=== PATIENT | female | born 1950 | race Hispanic/Latino ===

== ENCOUNTER 2017-11-04 21:55 | Emergency (ER) | payer MEDICARE ==
[~2017-11-04] VITALS: Ht 162.6 cm; Wt 135.6 kg
[~2017-11-04 21:55] MED LIST: ADVAIR 500/501 EA INH; ALBUTEROL0.63 MG/3; AMLODIPINE BESY10 MG PO; CALCIUM600 MG PO; CENTRUM SILVER1 EAC4 PO; CITALOPRAM HBR40 MG PO; FEXOFENADINE H180 MG PO; FLAXSEED1000 MG PO; FLUOCINONIDE15 GM TOP; FUROSEMIDE40 MG PO; GABAPENTIN800 MG PO; GLYBURIDE5 MG PO; INVOKANA PO; KLOR-CON 88 MEQ PO; METFORMIN HCL850 MG PO; PANTOPRAZOLE SO40 MG PO; PLAVIX75 MG PO; PROAIR HFA INH8.5 GM; SIMVASTATIN20 MG PO; SOTALOL80 MG PO; TEMAZEPAM15 MG PO; THEOPHYLLINE600 MG PO; TRAZODONE HCL100 MG PO; TYLENOL EXTRA500 MG PO; ULTRAM50 MG PO; VITAMIN D31000 UNIT PO; VITAMIN E100 UNI1 PO; WELLBUTRIN SR150 MG PO; [UNRECOGNIZED DRUG - OTHER]; [UNRECOGNIZED DRUG - OTHER] PO
--- NOTE | 2017-11-05 00:16 | Diagnostic Imaging Report ---
RIBS UNILAT W/CXR Comparison: None Clinical history: Right-sided pain Findings: Heart/mediastinum: Normal for technique. Atherosclerotic aortic calcifications. Lungs/pleural spaces: Right upper lobe calcified granuloma. Mild left basilar linear atelectasis/scarring. No effusion or pneumothorax. Bones/soft tissues: No acute displaced right rib fracture. Cholecystectomy clips. Impression: No acute abnormality Signed by: Dr Kiana Farah MD on 11/05/2017 12:13 AM
--- NOTE | 2017-11-05 00:18 | Diagnostic Imaging Report ---
History:Status post fall. Comparison studies: None Technique: Axial images were obtained through the maxillofacial region. Coronal and sagittal images reconstructed from the axial data. Intravenous contrast: None Findings: Soft tissues: No abnormalities. Bones: Age indeterminate mildly displaced fracture of right nasal bone without overlying soft tissue edema. Orbits: Globes: Intact Extra or intraconal abnormalities: None. Paranasal sinuses: Clear Incidental finding: Pneumatized bilateral middle turbinates. IMPRESSION: Age indeterminate mildly displaced fracture of right nasal bone. Signed by: Dr. Elina Martinez M.D. on 11/05/2017 12:14 AM
--- NOTE | 2017-11-05 00:22 | Diagnostic Imaging Report ---
EXAMINATION: Head CT without contrast. HISTORY:Status post fall. COMPARISON:None. TECHNIQUE: Multidetector axial images were obtained from the foramen magnum to the vertex without contrast. The images were reconstructed using brain and bone algorithms. Thin section brain images were reformatted into coronal and sagittal planes. Intravenous contrast: None IMAGE QUALITY: Acceptable. FINDINGS: Skull/scalp: No abnormality. Parenchyma: No abnormal density. No acute hemorrhage, mass or acute major vascular territorial infarct. Arteries: Mild atherosclerotic calcification in bilateral carotid siphon. Dural sinuses: No abnormal density suggestive of thrombosis. Ventricles: No hydrocephalus or displacement. Extra-axial spaces: No abnormal density. Brain volume: Normal for age. Craniocervical junction: No mass, Chiari malformation, or basilar invagination. Sella: No mass. Paranasal/mastoid sinuses: Imaged portions unremarkable. IMPRESSION: No intracranial abnormality. Signed by: Dr. Elina Martinez M.D. on 11/05/2017 12:19 AM
--- NOTE | 2017-11-05 00:27 | Diagnostic Imaging Report ---
History: Status post fall. Comparison studies: None Technique: Axial images were obtained through the cervical region.. Coronal and sagittal images reconstructed from the axial data.. Intravenous contrast: None Findings: Fractures: None. Soft tissue injuries: None. Atlantoaxial articulation: Intact. Alignment: Loss of normal cervical lordosis is either positional or due to muscle spasm.. No scoliosis. Cervicomedullary junction: No abnormalities. The foramen magnum is patent. Soft tissues: Atherosclerotic calcification in the carotid bulb and retropharyngeal course of the carotid arteries. Vertebrae: No fractures, infection or neoplasm. Degenerative changes: C4-C5: Mild left foraminal stenosis due to facet and uncovertebral arthrosis. C5-C6: Posterior disc osteophyte complex without canal stenosis.. IMPRESSION: 1. No acute cervical spine fracture or dislocation. Loss of normal cervical lordosis is either positional or due to muscle spasm. 2. Ligament, spinal cord and or vascular abnormalities cannot be excluded on the basis of this examination. Signed by: Dr. Elina Martinez M.D. on 11/05/2017 12:24 AM
[2017-11-05 00:59] VITALS: BP 129/64
[2017-11-05] MEDS ORDERED: ULTRAM50 MG PO (01:00)
== END 2017-11-05 01:26 | disposition home or self-care (01) ==
LOC: ER 21:55
DX: S02.2XXA Fracture of nasal bones, initial encounter for closed fracture (principal); S00.83XA Contusion of other part of head, initial encounter; S00.11XA Contusion of right eyelid and periocular area, initial encounter; S16.1XXA Strain of muscle, fascia and tendon at neck level, initial encounter; W01.0XXA Fall on same level from slipping, tripping and stumbling without subsequent striking against object, initial encounter; Y93.01 Activity, walking, marching and hiking; Y92.008 Other place in unspecified non-institutional (private) residence as the place of occurrence of the external cause; I10 Essential (primary) hypertension; E11.9 Type 2 diabetes mellitus without complications; I50.9 Heart failure, unspecified; E78.5 Hyperlipidemia, unspecified; K21.9 Gastro-esophageal reflux disease without esophagitis; F41.9 Anxiety disorder, unspecified; F32.9 Major depressive disorder, single episode, unspecified
CPT/HCPCS: 70450; 70486; 71101; 72125; 99283

== ENCOUNTER 2017-11-07 18:01 | Emergency (ER) | payer MEDICARE ==
[~2017-11-07] VITALS: Ht 162.6 cm; Wt 135.6 kg
[2017-11-07] MEDS ORDERED: CLINDAMYCIN PHOS 900MG/ D5W 50 50 ML IV STA (20:16)
[2017-11-07 20:48] LABS: BASOPHILS % 0.3 % (0.0-1.0); EOSINOPHILS # (AUTO) 0.1 (0.0-0.4); EOSINOPHILS % 1.4 % (0.0-6.0); HEMOGLOBIN 14.1 g/dL (12.0-16.0); LYMPHOCYTES # (AUTO) 2.3 (1.0-3.2); LYMPHOCYTES % 29.8 % (18.0-39.1); MEAN CORPUSCULAR HEMOGLOBIN 30.1 pg (28-32); MEAN CORPUSCULAR VOLUME 93.8 fL (81-99); MONOCYTES # (AUTO) 0.5 (0.2-0.8); MONOCYTES % 6.5 % (4.4-11.3); NEUTROPHILS # (AUTO) 4.8 (2.1-6.9); NEUTROPHILS % 61.7 % (38.7-80.0); PLATELET COUNT 209 x10e3/uL (140-360); RED BLOOD COUNT 4.69 x10e6/uL (3.6-5.1); RED CELL DISTRIBUTION WIDTH 12.5 % (11.7-14.4)
[2017-11-07 20:54] LABS: INR 0.87; PROTHROMBIN TIME 12.3 seconds (11.9-14.5)
[2017-11-07 20:55] LABS: PARTIAL THROMBOPLASTIN TIME 33.6 seconds (23.8-35.5)
[2017-11-07 21:02] LABS: ALBUMIN 4.1 g/dL (3.5-5.0); ANION GAP 12.6 mmol/L (8-16); CALCIUM 9.3 mg/dL (8.4-10.2); CREATININE, SERUM 0.98 mg/dL (0.57-1.11); MAGNESIUM 2.1 MG/DL (1.3-2.1); POTASSIUM 3.6 mmol/L (3.5-5.1)
[2017-11-07 21:09] LABS: B-TYPE NATRIURETIC PEPTIDE2 35.3 pg/mL (0-100)
--- NOTE | 2017-11-07 21:11 | Diagnostic Imaging Report ---
LOWER LEG LEFT Comparison: None Clinical history: History of CHF, lower extremity swelling Findings: No fracture or dislocation. Mild diffuse soft tissues swelling. Impression: No acute bony abnormality Signed by: Dr Kiana Farah MD on 11/07/2017 9:07 PM
--- NOTE | 2017-11-07 21:12 | Diagnostic Imaging Report ---
CHEST 2 VIEWS, Technique: CHEST 2 VIEWS Comparison: 11/04/2017 Clinical history: CHF, lower terminates swelling DISCUSSION: Heart/mediastinum: Stable, borderline heart size. Aortic calcifications. Lungs: Mild bibasilar vascular crowding/atelectasis. No edema or consolidation. Calcified right lung granuloma. Pleural spaces: No pleural effusion or pneumothorax. IMPRESSION: No acute abnormality Signed by: Dr Kiana Farah MD on 11/07/2017 9:09 PM
[2017-11-07 21:23] LABS: CREATINE KINASE MB 2.1 ng/mL (0.00-5.00); THYROID STIMULATING HORMONE 0.98 uIU/mL (0.350-4.940); TROPONIN I 0.004 ng/mL (0-0.300)
[2017-11-07 22:27] VITALS: BP 149/86
== END 2017-11-07 22:37 | disposition home or self-care (01) ==
LOC: ER 18:01
DX: M79.662 Pain in left lower leg (principal); L03.116 Cellulitis of left lower limb; W01.0XXD Fall on same level from slipping, tripping and stumbling without subsequent striking against object, subsequent encounter
CPT/HCPCS: 36415; 71020; 80053; 82550; 82553; 83605; 83735; 83880; 84443; 84484; 85025; 85610; 85730; 87040; 93971; 99283

== ENCOUNTER 2018-03-05 10:14 | Outpatient (RCR) | payer MEDICARE | END 2018-03-12 | LOC: WCC 10:14 | PROVIDERS: ATTEND Family Medicine Adult Medicine | DX: E11.59 Type 2 diabetes mellitus with other circulatory complications (principal); R60.0 Localized edema; I87.2 Venous insufficiency (chronic) (peripheral); E78.00 Pure hypercholesterolemia, unspecified; F32.9 Major depressive disorder, single episode, unspecified; G90.09 Other idiopathic peripheral autonomic neuropathy; I50.9 Heart failure, unspecified; J44.9 Chronic obstructive pulmonary disease, unspecified; J45.909 Unspecified asthma, uncomplicated; K21.9 Gastro-esophageal reflux disease without esophagitis ==

== ENCOUNTER 2018-06-17 12:38 | Inpatient (IN) | payer MEDICARE ==
[~2018-06-17] VITALS: Ht 167.6 cm; Wt 130.8 kg
[2018-06-17] MEDS ORDERED: ALBUTEROL SULF 0.083% NEB SOLN 3 ML NEB NEB STA ×2 (12:44→12:49)
[2018-06-17 12:58] LABS: BASOPHILS % 0.3 % (0.0-1.0); EOSINOPHILS # (AUTO) 0.1 (0.0-0.4); EOSINOPHILS % 1.3 % (0.0-6.0); HEMATOCRIT 44.2 % (34.2-44.1); HEMOGLOBIN 14.3 g/dL (12.0-16.0); LYMPHOCYTES # (AUTO) 1.8 (1.0-3.2); LYMPHOCYTES % 25.8 % (18.0-39.1); MEAN CORPUSCULAR HEMOGLOBIN 29.5 pg (28-32); MEAN CORPUSCULAR HGB CONC 32.4 g/dL (31-35); MEAN CORPUSCULAR VOLUME 91.3 fL (81-99); MONOCYTES # (AUTO) 0.4 (0.2-0.8); MONOCYTES % 5.8 % (4.4-11.3); NEUTROPHILS # (AUTO) 4.7 (2.1-6.9); NEUTROPHILS % 66.5 % (38.7-80.0); PLATELET COUNT 220 x10e3/uL (140-360); RED BLOOD COUNT 4.84 x10e6/uL (3.6-5.1); RED CELL DISTRIBUTION WIDTH 13.1 % (11.7-14.4)
[2018-06-17] MEDS ORDERED: IPRATROPIUM BROMIDE 0.02% 2.5 ML NEB NEB ONE (13:00)
[2018-06-17] MEDS ORDERED: AZITHROMYCIN 500MG/NS 250 ML 250 ML IV STA (13:01)
[2018-06-17 13:13] LABS: ALBUMIN 3.5 g/dL (3.5-5.0); ALBUMIN/GLOBULIN RATIO 0.9 (0.8-2.0); CALCIUM 8.9 mg/dL (8.4-10.2); CREATININE, SERUM 1.1 mg/dL (0.57-1.11)
[2018-06-17] MEDS ORDERED: MAGNESIUM SULFATE 2GM/50ML 50 ML IV ONE (13:15)
[2018-06-17] MEDS ORDERED: METHYLPREDNISOLONE SOD SUCC 125 MG/2ML VIAL IV ONE (13:15)
[2018-06-17 14:09] LABS: ABG HCO3 23 mmol/L (23-28); ABG PCO2 35 mmHg (41-51); ABG PH 7.42 (7.31-7.41); ABG PO2 183 mmHg (80-105)
--- NOTE | 2018-06-17 14:15 | Diagnostic Imaging Report ---
EXAMINATION: Single frontal view of the chest COMPARISON: 11/07/2017 CLINICAL HISTORY: Shortness of breath DISCUSSION: The lungs are well-inflated. Calcified granuloma in the right upper lobe. No focal airspace consolidation, pleural effusion, or pneumothorax. Atherosclerotic calcification of the thoracic aorta. Normal heart size for portable, AP technique. No overt pulmonary edema. No acute osseous abnormalities. IMPRESSION: No acute cardiopulmonary abnormality. Signed by: Dr. Oscar Canseco M.D. on 06/17/2018 2:12 PM
[2018-06-17] MEDS ORDERED: ASPIRIN 81 MG CHEW TAB PO ONE (14:45)
[2018-06-17] MEDS: AZITHROMYCIN 500MG/NS 250 ML 250 ML IV SCH (15:05)
[2018-06-17 15:32] LABS: CREATINE KINASE MB 2.4 ng/mL (0-5.0)
[2018-06-17] MEDS ORDERED: NITROGLYCERIN0.4 MG SL (15:32)
[2018-06-17] MEDS ORDERED: CLOPIDOGREL75 MG PO (15:32)
[2018-06-17] MEDS ORDERED: METFORMIN HCL500 MG PO (15:32)
[2018-06-17] MEDS ORDERED: tresiba SC (15:32)
[2018-06-17 16:19] VITALS: BP 133/61
[2018-06-17 16:21] VITALS: BP 133/61
[2018-06-17 16:32] VITALS: BP 133/61
[2018-06-17] MEDS ORDERED: NON-FORMULARY MEDICATION (Gabapentin 800 MG) PO PRN (17:45)
[2018-06-17] MEDS ORDERED: TRAMADOL HCL 50 MG TAB PO PRN (17:45)
[2018-06-17] MEDS ORDERED: NITROGLYCERIN 0.4 MG SUBL SL SCH (17:45)
[2018-06-17] MEDS ORDERED: DEXTROSE 50% SYRINGE 50 ML IV PRN (17:45)
--- NOTE | 2018-06-17 18:15 | Consultation ---
DATE OF CONSULTATION: June 17, 2018 PULMONARY CONSULTATION A patient of Dr. Garza, Dr. Wheeler, Dr. Palacio. A charming but unfortunate 68-year-old woman admitted with shortness of breath after upper respiratory tract infection over 1 week, fever, chills, cough productive of green sputum, history of cardiac arrhythmias, history of diabetes, hypertension, COPD, sleep apnea. Unable to obtain CPAP. Chronic depression, gastroesophageal reflux. ALLERGIES: INCLUDE ASPIRIN, CODEINE, DILAUDID AND PENICILLIN. HOME MEDICATIONS: Have included Advair, albuterol, amlodipine, BuSpar, , Celexa, Plavix, Flomax, Neurontin, glyburide, metformin, montelukast, Zocor, sotalol, theophylline. Smoked a pack a day, has quit 1 month ago. Disabled. PHYSICAL EXAMINATION GENERAL: She is a well-developed female in no acute distress but anxious on supplemental oxygen. VITAL SIGNS: Temperature 98.6, pulse 58, respiration 20, blood pressure 132/80. HEAD: Normocephalic, atraumatic. EYES: Extraocular movements intact. LUNGS: Wheezing all lung serrano. HEART: Regular rhythm. ABDOMEN: Nontender. EXTREMITIES: Tender, which is from neuropathy. IMPRESSION: One of 1. Acute exacerbation of chronic obstructive pulmonary disease. 2. Possible component of asthma. 3. Obstructive sleep apnea. 4. Diabetes. PLAN: Moderate-dose steroids, empiric antibiotic therapy, nasal CPAP, supplemental oxygen. Thank you for this kind referral. Job#: [id number] EV
[2018-06-17] MEDS ORDERED: METHYLPREDNISOLONE SOD SUCC 40 MG/ML VIAL IV SCH (19:00)
[2018-06-17] MEDS ORDERED: IPRATROPIUM BROMIDE INHALER 12.9 GM INH INH SCH (19:00)
[2018-06-17] MEDS: ALBUTEROL/IPRATROPIUM 3 ML NEB NEB SCH ×2 (19:00→23:00)
[2018-06-17] MEDS: INSULIN LISPRO 100 UNIT/1 ML 3ML VIAL SQ SCH (19:54)
[2018-06-17 20:00] VITALS: BP 133/61
[2018-06-17 20:18] LABS: CREATINE KINASE MB 1.8 ng/mL (0-5.0)
[2018-06-17 20:47] VITALS: BP 116/54
[2018-06-17] MEDS ORDERED: NON-FORMULARY MEDICATION (Trazodone Hcl 100 MG) PO SCH (21:00)
[2018-06-17] MEDS: SIMVASTATIN 20 MG TAB PO SCH (22:01)
[2018-06-17] MEDS: TRAZODONE HCL 50 MG TAB PO SCH (22:01)
[2018-06-17] MEDS: HEPARIN SOD (PORCINE) 5,000 UNIT/ML VIAL SC SCH (22:02)
[2018-06-17] MEDS: GABAPENTIN 400 MG CAP PO PRN (22:14)
[2018-06-17] MEDS: TRAMADOL HCL 50 MG TAB PO PRN (22:15)
[2018-06-18] VITALS (7 sets, daily range): BP systolic 110–144; BP diastolic 53–63
[2018-06-18] MEDS: ALBUTEROL/IPRATROPIUM 3 ML NEB NEB SCH ×6 (03:00→22:30)
[2018-06-18 05:46] LABS: BASOPHILS % 0.2 % (0.0-1.0); HEMATOCRIT 40.9 % (34.2-44.1); HEMOGLOBIN 13.2 g/dL (12.0-16.0); LYMPHOCYTES # (AUTO) 1.3 (1.0-3.2); LYMPHOCYTES % 20.4 % (18.0-39.1); MEAN CORPUSCULAR HEMOGLOBIN 29.2 pg (28-32); MEAN CORPUSCULAR HGB CONC 32.3 g/dL (31-35); MEAN CORPUSCULAR VOLUME 90.5 fL (81-99); MONOCYTES # (AUTO) 0.3 (0.2-0.8); MONOCYTES % 5.2 % (4.4-11.3); NEUTROPHILS # (AUTO) 4.8 (2.1-6.9); NEUTROPHILS % 73.7 % (38.7-80.0); PLATELET COUNT 212 x10e3/uL (140-360); RED BLOOD COUNT 4.52 x10e6/uL (3.6-5.1)
--- NOTE | 2018-06-18 06:43 | Diagnostic Imaging Report ---
CHEST 2 VIEWS, Technique: CHEST 2 VIEWS Comparison: Previous day Clinical history: Shortness of breath DISCUSSION: PA view is limited by overpenetration. Stable appearance of the heart, mediastinum, lungs and pleural spaces. IMPRESSION: No acute abnormality Signed by: Dr Kiana Farah MD on 06/18/2018 6:40 AM
[2018-06-18 07:00] LABS: ANION GAP 14.2 mmol/L (8-16); CALCIUM 9.3 mg/dL (8.4-10.2); CREATININE, SERUM 0.94 mg/dL (0.57-1.11); POTASSIUM 4.2 mmol/L (3.5-5.1)
[2018-06-18] MEDS: INSULIN LISPRO 100 UNIT/1 ML 3ML VIAL SQ SCH ×4 (07:47→21:19)
[2018-06-18] MEDS: CITALOPRAM HYDROBROMIDE 20 MG TAB PO SCH (08:15)
[2018-06-18] MEDS: CLOPIDOGREL BISULFATE 75 MG TAB PO SCH (08:15)
[2018-06-18] MEDS: AMLODIPINE BESYLATE 10 MG TAB PO SCH (08:16)
[2018-06-18] MEDS: GLYBURIDE 5 MG TAB PO SCH (08:16)
[2018-06-18] MEDS: POTASSIUM CHLORIDE 10 MEQ TABCR PO SCH (08:16)
[2018-06-18] MEDS: PANTOPRAZOLE SOD 40 MG TABEC PO SCH (08:17)
[2018-06-18] MEDS: SOTALOL HCL 80 MG TAB PO SCH ×2 (08:17→17:00)
[2018-06-18] MEDS: BUPROPION HCL SR 150 MG TAB PO SCH (08:17)
[2018-06-18] MEDS: HEPARIN SOD (PORCINE) 5,000 UNIT/ML VIAL SC SCH ×2 (08:18→21:19)
[2018-06-18] MEDS: FUROSEMIDE 40 MG TAB PO SCH (08:30)
[2018-06-18] MEDS: SALMETEROL/FLUTICASONE 500/50 INH SCH ×2 (09:00→17:00)
[2018-06-18] MEDS ORDERED: POTASSIUM CHLORIDE 8 MEQ PO SCH (09:00)
[2018-06-18] MEDS ORDERED: NON-FORMULARY MEDICATION (Citalopram Hydrobromide (Citalopram Hbr) 40 MG) PO SCH (09:00)
[2018-06-18] MEDS ORDERED: METHYLPREDNISOLONE SOD SUCC 40 MG/ML VIAL IV SCH (09:00)
[2018-06-18] MEDS ORDERED: CEFTRIAXONE SOD 1 GM/NS 50 ML 50 ML IV SCH (09:45)
[2018-06-18] MEDS ORDERED: CEFTRIAXONE SOD 1 GM VIAL IV SCH (10:00)
--- NOTE | 2018-06-18 10:12 | History and Physical ---
PRIMARY CARE PHYSICIAN: Dr. Vicenta Todd NURSE CHARGE RN: Dr. Oscar Burns CHIEF COMPLAINT: Hypoxia, respiratory difficulty with dyspnea. HISTORY: Patient is a 68-year-old female came into the hospital with increasing shortness of breath, cough, fever, and difficulty breathing. The patient has acute respiratory insufficiency. The patient required BiPAP. She is doing better today. She is still having wheezing and shortness of breath especially with any exertion. The patient at baseline is a smoker. She does have COPD. PAST MEDICAL HISTORY: Hypertension, diabetes type 2, COPD with acute exacerbation, smoker, coronary artery disease with cardiac arrhythmia, cataract, and chronic headaches. PAST SURGICAL HISTORY: Hysterectomy, cholecystectomy, and cataract surgery. SOCIAL HISTORY: Patient does smoke. She denies alcohol use. There is no recreational drug use. ALLERGIES: TO IBUPROFEN, ASPIRIN, CODEINE, PEANUTS, PENICILLIN. HOME MEDICATIONS: List is extensively reviewed. REVIEW OF SYSTEMS: Coughing, shortness of breath, low-grade fever, difficulty breathing. PHYSICAL EXAMINATION: VITAL SIGNS: Temperature is 99, blood pressure 139/63, pulse rate 64, respirations 22. GENERAL: The patient is not in acute distress. She is awake. HEENT: Normocephalic, atraumatic. Sclerae anicteric. NECK: Supple grossly. PULMONARY: Diminished breath sounds bilaterally with coarseness and rhonchi. CARDIOVASCULAR: Regular rate and rhythm. ABDOMEN: Soft, obese. EXTREMITIES: No cyanosis or edema. NEURO: No gross focal deficit. LABORATORY: Sodium is 140, potassium 4.2, chloride 106, bicarb 24, BUN 21, creatinine 0.9, glucose 152. WBC 6.5, hemoglobin 13, hematocrit 41, platelets is 218,000. CT of the chest is still pending. IMPRESSION: 1. Acute exacerbation of chronic obstructive pulmonary disease. 2. Acute respiratory insufficiency. 3. Morbid obesity. 4. Multiple baseline problems. PLAN: Continue with nebulizer treatment. IV antibiotics. DVT prophylaxis. Resume home medication, insulin sliding scale coverage, and continue with her home medication with adjustment. Nebulizer treatment. Consultation with Dr. Oscar Burns. CT chest still pending. Job#: [id number]
[2018-06-18] MEDS: ONDANSETRON HCL INJ 2 MG/ML VIAL IV PRN (11:48)
[2018-06-18] MEDS: AZITHROMYCIN 500MG/NS 250 ML 250 ML IV SCH (15:53)
--- NOTE | 2018-06-18 16:46 | Diagnostic Imaging Report ---
TECHNIQUE: CT of the chest without intravenous contrast. COMPARISON: Chest radiograph 06/18/18. FINDINGS: LINES AND TUBES: None LUNGS AND AIRWAYS: The central airways are patent. There is a 6 mm calcified granuloma in the right upper lobe. There is a 3 mm solid pulmonary nodule in the right lower lobe on series 2, image 55. Scattered dependent atelectasis. PLEURA: The pleural spaces are clear. HEART AND MEDIASTINUM: The thyroid gland is normal. No significant mediastinal, hilar or axillary lymphadenopathy is seen. No cardiomegaly or pericardial effusion. Atherosclerotic calcifications of the abdominal aorta, great vessels, and coronary vessels. Mitral annular calcifications. The main pulmonary artery is mildly dilated measuring up to 3.1 cm. UPPER ABDOMEN: Limited noncontrast views of the upper abdomen demonstrate no abnormality in the liver, spleen, or adrenal glands. Status post cholecystectomy. BONES AND SOFT TISSUES: No acute bony findings. There is a T4 vertebral body hemangioma. Mild degenerative disc changes in the thoracic spine. IMPRESSION: No acute findings in the chest on this non-contrast study. Coronary and aortic atherosclerosis. Mildly dilated main pulmonary artery, suggestive of pulmonary arterial hypertension. A 3 mm solid pulmonary nodule in the right upper lobe is likely benign. In a low risk patient, no follow-up is required. If the patient has a risk factory for malignancy, then a chest CT may be considered in 12 months. Signed by: Dr. Mikhail Zambrano MD on 06/18/2018 4:42 PM
[2018-06-18] MEDS: METHYLPREDNISOLONE SOD SUCC 40 MG/ML VIAL IV SCH (18:11)
[2018-06-18] MEDS: ENOXAPARIN SOD INJ 40 MG/0.4 ML SYR SC SCH (18:12)
[2018-06-18] MEDS: TRAZODONE HCL 50 MG TAB PO SCH (21:19)
[2018-06-18] MEDS: TRAMADOL HCL 50 MG TAB PO PRN (21:19)
[2018-06-18] MEDS: GABAPENTIN 400 MG CAP PO PRN (21:19)
[2018-06-18] MEDS: SIMVASTATIN 20 MG TAB PO SCH (21:19)
[2018-06-19] VITALS (8 sets, daily range): BP systolic 114–136; BP diastolic 58–87
[2018-06-19] MEDS: ALBUTEROL/IPRATROPIUM 3 ML NEB NEB SCH ×6 (03:00→22:15)
[2018-06-19] MEDS: INSULIN LISPRO 100 UNIT/1 ML 3ML VIAL SQ SCH ×4 (08:19→21:00)
[2018-06-19] MEDS: SALMETEROL/FLUTICASONE 500/50 INH SCH ×2 (08:48→16:50)
[2018-06-19] MEDS: METHYLPREDNISOLONE SOD SUCC 40 MG/ML VIAL IV SCH ×2 (08:54→16:50)
[2018-06-19] MEDS: CITALOPRAM HYDROBROMIDE 20 MG TAB PO SCH (08:54)
[2018-06-19] MEDS: GLYBURIDE 5 MG TAB PO SCH (08:54)
[2018-06-19] MEDS: CLOPIDOGREL BISULFATE 75 MG TAB PO SCH (08:55)
[2018-06-19] MEDS: PANTOPRAZOLE SOD 40 MG TABEC PO SCH (08:55)
[2018-06-19] MEDS: SOTALOL HCL 80 MG TAB PO SCH ×2 (08:55→16:50)
[2018-06-19] MEDS: BUPROPION HCL SR 150 MG TAB PO SCH (08:55)
[2018-06-19] MEDS: FUROSEMIDE 40 MG TAB PO SCH (08:55)
[2018-06-19] MEDS: AMLODIPINE BESYLATE 10 MG TAB PO SCH (08:55)
[2018-06-19] MEDS: POTASSIUM CHLORIDE 10 MEQ TABCR PO SCH (08:55)
[2018-06-19] MEDS: HEPARIN SOD (PORCINE) 5,000 UNIT/ML VIAL SC SCH ×2 (08:56→21:00)
[2018-06-19] MEDS ORDERED: CEFTRIAXONE SOD 1 GM/NS 50 ML 50 ML IV SCH (09:00)
[2018-06-19] MEDS: AZITHROMYCIN 500MG/NS 250 ML 250 ML IV SCH (16:47)
[2018-06-19] MEDS: ENOXAPARIN SOD INJ 40 MG/0.4 ML SYR SC SCH (16:50)
[2018-06-19] MEDS: SIMVASTATIN 20 MG TAB PO SCH (21:00)
[2018-06-19] MEDS: TRAZODONE HCL 50 MG TAB PO SCH (21:00)
[2018-06-20] VITALS (7 sets, daily range): BP systolic 106–165; BP diastolic 53–70
[2018-06-20] MEDS: ALBUTEROL/IPRATROPIUM 3 ML NEB NEB SCH ×6 (01:55→22:30)
[2018-06-20] MEDS: SALMETEROL/FLUTICASONE 500/50 INH SCH ×2 (07:20→19:10)
[2018-06-20] MEDS: INSULIN LISPRO 100 UNIT/1 ML 3ML VIAL SQ SCH ×4 (07:30→21:19)
[2018-06-20] MEDS: CITALOPRAM HYDROBROMIDE 20 MG TAB PO SCH (08:43)
[2018-06-20] MEDS: METHYLPREDNISOLONE SOD SUCC 40 MG/ML VIAL IV SCH ×2 (08:43→16:39)
[2018-06-20] MEDS: GLYBURIDE 5 MG TAB PO SCH (08:43)
[2018-06-20] MEDS: POTASSIUM CHLORIDE 10 MEQ TABCR PO SCH (08:43)
[2018-06-20] MEDS: FUROSEMIDE 40 MG TAB PO SCH (08:43)
[2018-06-20] MEDS: CLOPIDOGREL BISULFATE 75 MG TAB PO SCH (08:44)
[2018-06-20] MEDS: BUPROPION HCL SR 150 MG TAB PO SCH (08:44)
[2018-06-20] MEDS: AMLODIPINE BESYLATE 10 MG TAB PO SCH (08:44)
[2018-06-20] MEDS: SOTALOL HCL 80 MG TAB PO SCH ×2 (08:44→16:41)
[2018-06-20] MEDS: PANTOPRAZOLE SOD 40 MG TABEC PO SCH (08:44)
[2018-06-20] MEDS: HEPARIN SOD (PORCINE) 5,000 UNIT/ML VIAL SC SCH ×2 (09:07→21:20)
[2018-06-20] MEDS: CEFTRIAXONE SOD 1 GM VIAL IV SCH (09:09)
[2018-06-20] MEDS: ONDANSETRON HCL INJ 2 MG/ML VIAL IV PRN (09:46)
[2018-06-20] MEDS: AZITHROMYCIN 500MG/NS 250 ML 250 ML IV SCH (15:27)
[2018-06-20] MEDS: ENOXAPARIN SOD INJ 40 MG/0.4 ML SYR SC SCH (16:41)
[2018-06-20] MEDS: TRAZODONE HCL 50 MG TAB PO SCH (21:17)
[2018-06-20] MEDS: SIMVASTATIN 20 MG TAB PO SCH (21:17)
[2018-06-21] VITALS (8 sets, daily range): BP systolic 108–136; BP diastolic 58–62
[2018-06-21] MEDS: ALBUTEROL/IPRATROPIUM 3 ML NEB NEB SCH ×6 (01:40→23:00)
[2018-06-21] MEDS: INSULIN LISPRO 100 UNIT/1 ML 3ML VIAL SQ SCH ×4 (07:30→21:00)
[2018-06-21] MEDS: SALMETEROL/FLUTICASONE 500/50 INH SCH ×2 (07:46→19:15)
[2018-06-21] MEDS: CITALOPRAM HYDROBROMIDE 20 MG TAB PO SCH (08:45)
[2018-06-21] MEDS: GLYBURIDE 5 MG TAB PO SCH (08:45)
[2018-06-21] MEDS: CEFTRIAXONE SOD 1 GM VIAL IV SCH (08:45)
[2018-06-21] MEDS: METHYLPREDNISOLONE SOD SUCC 40 MG/ML VIAL IV SCH (08:45)
[2018-06-21] MEDS: AMLODIPINE BESYLATE 10 MG TAB PO SCH (08:46)
[2018-06-21] MEDS: CLOPIDOGREL BISULFATE 75 MG TAB PO SCH (08:46)
[2018-06-21] MEDS: BUPROPION HCL SR 150 MG TAB PO SCH (08:46)
[2018-06-21] MEDS: FUROSEMIDE 40 MG TAB PO SCH (08:46)
[2018-06-21] MEDS: POTASSIUM CHLORIDE 10 MEQ TABCR PO SCH (08:46)
[2018-06-21] MEDS: SOTALOL HCL 80 MG TAB PO SCH ×2 (08:46→17:02)
[2018-06-21] MEDS: PANTOPRAZOLE SOD 40 MG TABEC PO SCH (08:46)
[2018-06-21] MEDS: HEPARIN SOD (PORCINE) 5,000 UNIT/ML VIAL SC SCH ×2 (08:47→21:58)
[2018-06-21] MEDS ORDERED: INSULIN DETEMIR 100 UNIT/ML PEN SQ ONE (11:15)
[2018-06-21] MEDS: AZITHROMYCIN 500MG/NS 250 ML 250 ML IV SCH (14:41)
[2018-06-21] MEDS: ENOXAPARIN SOD INJ 40 MG/0.4 ML SYR SC SCH (17:02)
[2018-06-21] MEDS: SIMVASTATIN 20 MG TAB PO SCH (21:57)
[2018-06-21] MEDS: TRAZODONE HCL 50 MG TAB PO SCH (21:57)
[2018-06-22 00:22] VITALS: BP 115/57
[2018-06-22] MEDS: ALBUTEROL/IPRATROPIUM 3 ML NEB NEB SCH ×3 (03:00→11:00)
[2018-06-22 04:40] VITALS: BP 107/56
[2018-06-22 05:04] LABS: BASOPHILS % 0.3 % (0.0-1.0); EOSINOPHILS # (AUTO) 0.1 (0.0-0.4); EOSINOPHILS % 0.9 % (0.0-6.0); HEMATOCRIT 44.5 % (34.2-44.1); HEMOGLOBIN 14.4 g/dL (12.0-16.0); LYMPHOCYTES # (AUTO) 3.8 (1.0-3.2); LYMPHOCYTES % 39.8 % (18.0-39.1); MEAN CORPUSCULAR HEMOGLOBIN 29.7 pg (28-32); MEAN CORPUSCULAR HGB CONC 32.4 g/dL (31-35); MEAN CORPUSCULAR VOLUME 91.8 fL (81-99); MONOCYTES # (AUTO) 0.7 (0.2-0.8); MONOCYTES % 7.7 % (4.4-11.3); NEUTROPHILS # (AUTO) 4.8 (2.1-6.9); NEUTROPHILS % 50.7 % (38.7-80.0); PLATELET COUNT 201 x10e3/uL (140-360); RED BLOOD COUNT 4.85 x10e6/uL (3.6-5.1); RED CELL DISTRIBUTION WIDTH 12.9 % (11.7-14.4)
[2018-06-22 05:26] LABS: ANION GAP 12.6 mmol/L (8-16); CALCIUM 9.5 mg/dL (8.4-10.2); CREATININE, SERUM 1.22 mg/dL (0.57-1.11); POTASSIUM 4.6 mmol/L (3.5-5.1)
[2018-06-22] MEDS: INSULIN LISPRO 100 UNIT/1 ML 3ML VIAL SQ SCH ×2 (07:30→11:30)
[2018-06-22 07:35] VITALS: BP 107/56
[2018-06-22 08:00] VITALS: BP 110/53
[2018-06-22] MEDS: SALMETEROL/FLUTICASONE 500/50 INH SCH (08:09)
[2018-06-22] MEDS: CITALOPRAM HYDROBROMIDE 20 MG TAB PO SCH (08:45)
[2018-06-22] MEDS: SOTALOL HCL 80 MG TAB PO SCH (08:45)
[2018-06-22] MEDS: CEFTRIAXONE SOD 1 GM VIAL IV SCH (08:45)
[2018-06-22] MEDS: CLOPIDOGREL BISULFATE 75 MG TAB PO SCH (08:45)
[2018-06-22] MEDS: AMLODIPINE BESYLATE 10 MG TAB PO SCH (08:45)
[2018-06-22] MEDS: PANTOPRAZOLE SOD 40 MG TABEC PO SCH (08:45)
[2018-06-22] MEDS: BUPROPION HCL SR 150 MG TAB PO SCH (08:45)
[2018-06-22] MEDS: GLYBURIDE 5 MG TAB PO SCH (08:45)
[2018-06-22] MEDS: HEPARIN SOD (PORCINE) 5,000 UNIT/ML VIAL SC SCH (08:45)
[2018-06-22] MEDS: POTASSIUM CHLORIDE 10 MEQ TABCR PO SCH (08:45)
[2018-06-22] MEDS ORDERED: METHYLPREDNISOLONE SOD SUCC 40 MG/ML VIAL IV SCH (09:00)
[2018-06-22] MEDS: FUROSEMIDE 40 MG TAB PO SCH (10:37)
--- NOTE | 2018-06-22 11:43 | Discharge Summary ---
PRIMARY CARE PHYSICIAN: Vicenta Todd MD LAW REPORTER: Dr. Oscar Burns. FINAL DIAGNOSES 1. Status post acute respiratory failure with bilevel positive airway pressure treatment. 2. Acute exacerbation of chronic obstructive pulmonary disease with acute hypoxia. 3. Morbid obesity. 4. Multiple chronic baseline problems including chronic obstructive pulmonary disease, emphysema, obesity, obstructive sleep apnea, diabetes on insulin therapy, hypertension, extensive comorbidities. SUMMARY: This 68-year-old female came in with respiratory failure. The patient was in acute exacerbation of COPD. She was having wheezing and difficulty breathing. The patient had hypoxia. She was placed on BiPAP. The patient responded well. She subsequently was changed to CPAP for sleep. She does have obstructive sleep apnea, but she did not have her CPAP at home. 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 The patient was on IV Solu-Medrol, subsequently titrating Solu-Medrol down to now discontinued. She does have diabetes on insulin and also oral medications. The blood sugar was elevated due to steroids but much improved now since tapering the steroids. The patient is stable. She will go home today. Activity as tolerated. Resume home medication. Follow up with Dr. Burns this week and her PCP next week. The patient is stable for discharge home today. Job#: [id number]
[2018-06-22 12:00] VITALS: BP 124/62
== END 2018-06-22 13:19 | disposition home health service (06) | DRG 189 ==
LOC: ER 12:38 → ERHOLD 14:45 → IMCU 15:57 → OBSVTOIN 06-18 17:05 → MED/SURG3 06-19 17:24
PROVIDERS: ADMIT Internal Medicine; ATTEND Internal Medicine
DX: J96.01 Acute respiratory failure with hypoxia (principal); J44.1 Chronic obstructive pulmonary disease with (acute) exacerbation; Z68.42 Body mass index [BMI] 45.0-49.9, adult; E66.01 Morbid (severe) obesity due to excess calories; Z87.891 Personal history of nicotine dependence; I25.10 Atherosclerotic heart disease of native coronary artery without angina pectoris; G47.33 Obstructive sleep apnea (adult) (pediatric); Z99.81 Dependence on supplemental oxygen; E11.69 Type 2 diabetes mellitus with other specified complication; Z79.4 Long term (current) use of insulin; I10 Essential (primary) hypertension
CPT/HCPCS: 36415; 36600; 71045; 71046; 71250; 80048; 80053; 82550; 82553; 82805; 82948; 83605; 84484; 85025; 87040; 93005; 94640; 94660; 96372; 99284; G0378; J0456; J0696; J1644; J1650; J2405; J2920; J2930

== ENCOUNTER → 2018-07-17 | Outpatient (CLI) | payer MEDICARE, OTHER ==
[~2018-07-17] MED LIST changes: +CLOPIDOGREL75 MG PO; +METFORMIN HCL500 MG PO; +NITROGLYCERIN0.4 MG SL; +tresiba SC
--- NOTE | 2018-07-27 18:19 | Polysomnography ---
DATE OF STUDY: July 17, 2018 POLYSOMNOGRAM REPORT The patient with a history of daytime hypersomnolence. Previously diagnosed with obstructive sleep apnea. This represents a followup study and a split-night study was requested. the previous study was performed in 2010. . The study was performed on 07/17. The patient is 5 feet 5 inches. [place] sleepiness score was elevated at 14. Neck size was 15.75. Body mass index 48.3. She was monitored using standard EEG lead montage including electrooculogram, submental CMG anterior tibialis EMG, nasal thermistors ribcage and abdominal strain nathalie monitor, pulse oximeter. \ The study was abnormal. There were 5 obstructive and 1 central apnea, the longest in duration 16 seconds, 29 hypopneas, 8 respiratory event related arousals. The apnea hypopnea index was 11.3. The respiratory disturbance index 12.3. This with mild obstructive sleep apnea. All stages of sleep were recorded. Sleep efficiency was 88%. The patient slept on her left side which may have minimized the severity of her illness. Snoring was heard throughout the study. IMPRESSION: Mild obstructive sleep apnea. Therapeutic options include weight reduction, uvulopalatal pharyngoplasty, throat retaining devices and nasal CPAP. Patient should be warned not to drive when left untreated. During the second portion of the study she was fitted with a nasal CPAP mask. The patient did not meet criteria for a split-night study and a followup CPAP titration is recommended. Job#: [id number] SANDEEP
== END ==
LOC: SLEEP 19:15
PROVIDERS: ATTEND Internal Medicine Pulmonary Disease
DX: G47.33 Obstructive sleep apnea (adult) (pediatric) (principal)

== ENCOUNTER → 2018-09-07 | Outpatient (CLI) | payer MEDICARE, OTHER ==
--- NOTE | 2018-09-28 08:58 | Polysomnography ---
DATE OF STUDY: July 17, 2018 CPAP TITRATION The patient with previously diagnosed with obstructive sleep apnea. Patient has a history of daytime hypersomnolence, 290 pounds, 5 feet 5 inches, neck size 15.75 inches. She was studied using the standard EEG lead montage. In addition, electrooculogram, submentalis EMG, anterior tibialis EMG, nasal and oral thermistors, rib cage abdominal strain nathalie, monitor of pulse oximeter, potline monitor. She was fitted with a ResMed air-fit P10 medium size mask. She was titrated to BiPAP setting of 19/14. Heated humidifier was employed. A full face mask was used. The patient preferred nasal pillows. A ResMed air-fit F10 size small. Apneas and hypopneas were essentially eliminated. Final recommendation was a ResMed air-fit P10 nasal pillow, size medium. Saturation remained above 88%. All stages of sleep were recorded, including REM sleep. Patient slept on her right side for the entire study. Recommended the patient be given a trial of BiPAP. She was titrated from 4 to 12 and then to BiPAP of 19/17. Heated humidification is recommended to improve patient comfort and compliance. Certainly, weight reduction should be part of the patient's therapeutic program. She should be warned not to drive when left untreated. Job#: [id number] ANTWON
== END ==
LOC: SLEEP 20:11
PROVIDERS: ATTEND Internal Medicine Pulmonary Disease
DX: G47.33 Obstructive sleep apnea (adult) (pediatric) (principal)
CPT/HCPCS: 95811

== ENCOUNTER 2019-08-28 15:42 | Emergency (ER) | payer MEDICARE ==
[~2019-08-28] VITALS: Ht 167.6 cm; Wt 130.6 kg
--- OUTSIDE RECORDS SUMMARY | 2019-08-28 15:45 | XMS REPORT | Encounter Summary ---
Author Organization Unknown Address [address] [place] [address] Phone [phone] Care Team Providers Care Hand Etcher Helper Name Role Phone Dr. Vicenta Todd 3 [phone] Carole Palacio MD 82 [phone] Alex Diaz MD 111 [phone] Lucia Treadwell DO 113 [phone] Jo Ann Wheeler MD 114 [phone] Dax Oshea MD (Endocrinology) 119 [phone] Pita Mills MD 129 [phone] Reason for Visit AWV Annual Wellness Visit Female (VFP); UTI Instructions 1. Adult health examination 2. Advance directive discussed with patient advance care planning: care instructions 3. Depression screening 4. Alcohol consumption screening learning about alcohol misuse 5. Depression screening positive learning about depression learning about mood disorders 6. Acute urinary tract infection urinalysis, dipstick Cipro 500 mg tablet culture, urine Discussion Note: None recorded. Plan of Care Reminders Provider Appointments Est Patient 12/29/2018 9:30AM Vicenta Todd MD Lab Urinalysis, Dipstick 11/25/2018 [facility] ([facility] [place] Culture, Urine 11/25/2018 [facility] Laboratory Referral None recorded. Procedures None recorded. Surgeries None recorded. Imaging None recorded. Medications Name Start Date Advair Diskus 500 mcg-50 mcg/dose powder for inhalation INHALE 2 PUFF(S) EVERY DAY BY INHALATION ROUTE. albuterol sulfate 2.5 mg/3 mL (0.083 %) solution for nebulization INHALE 3 MILLILITERS (2.5 MG) BY NEBULIZATION ROUTE NEEDED EVERY 4-6 HRS alprazolam 0.25 mg tablet Take 1 tablet every day by oral route at bedtime for 1 day. amlodipine 10 mg tablet TAKE 1 TABLET BY MOUTH EVERY DAY BD Ultra-Fine Coby Pen Needle 32 gauge x 5/32" QD bupropion HCl XL 300 mg 24 hr tablet, extended release TAKE 1 TABLET(S) EVERY DAY BY ORAL ROUTE DIRECTED. Centrum 1 tab a day cholecalciferol (vitamin D3) 1,000 unit capsule ONCE DAILY OTC Cipro 500 mg tablet Take 1 tablet every 12 hours by oral route as directed for 10 days. citalopram 40 mg tablet TAKE 1 TABLET(S) EVERY DAY BY ORAL ROUTE. clobetasol 0.05 % topical cream APPLY A THIN LAYER TO THE AFFECTED AREA(S) BY TOPICAL ROUTE 2 TIMES PER DAY clopidogrel 75 mg tablet TAKE 1 TABLET(S) EVERY DAY BY ORAL ROUTE. clotrimazole-betamethasone 1 %-0.05 % topical cream APPLY TO THE AFFECTED AND SURROUNDING AREAS OF SKIN BY TOPICAL ROUTE 2 TIMES PER DAY IN THE MORNING AND EVENING FOR 2 WEEKS doxepin 5 % topical cream TID to left knee 04/08/2017 furosemide 40 mg tablet TAKE 1 TABLET BY MOUTH EVERY DAY gabapentin 800 mg tablet TAKE 1 TABLET BY MOUTH 3 TIMES A DAY glyburide 5 mg tablet Take 2 tablets twice a day by oral route. hydroxyzine HCl 10 mg tablet BID Invokana 100 mg tablet lidocaine 5 % topical ointment TID to left knee 04/08/2017 lisinopril 5 mg tablet QD meclizine 25 mg tablet Take 1 tablet 3 times a day by oral route as needed. metformin 500 mg tablet Take 1 tablet twice a day by oral route for 90 days. montelukast 10 mg tablet TAKE 1 TABLET BY MOUTH EVERY DAY nitroglycerin 0.[address] 1 TABLET BY SUBLINGUAL ROUTE EVERY DAY NEEDED OneTouch Delica Lancets 30 gauge Take 1 each every day by miscell. route. OneTouch Ultra Blue Test Strip Test BG QD pantoprazole 40 mg tablet,delayed release Take 1 tablet every day by oral route. potassium chloride ER 8 mEq tablet,extended release TAKE 1 TABLET BY MOUTH EVERY DAY ProAir HFA 90 mcg/actuation aerosol inhaler Inhale 2 puffs every day by inhalation route as needed. simvastatin 20 mg tablet TAKE 1 TABLET BY MOUTH IN THE EVENING sotalol 80 mg tablet Take 1 tablet twice a day by oral route. Spiriva with HandiHaler 18 mcg and inhalation capsules Inhale 1 capsule every day by inhalation route. temazepam 15 mg capsule Take 1 capsule every day by oral route. tizanidine 4 mg tablet Take 1 tablet as needed by oral route at bedtime for 14 days. tramadol 50 mg tablet Take 1 tablet twice a day by oral route as needed for 10 days. trazodone 100 mg tablet TAKE 1 TABLET BY MOUTH EVERY DAY Tresiba FlexTouch U-100 insulin 100 unit/mL (3 mL) subcutaneous pen Wellbutrin SR 150 mg tablet, 12 hr sustained-release QD Medications Administered None recorded. Vitals Height Weight BMI Blood Pressure 5 ft 4 in 294.6 lbs 50.6 kg/m2 135/80 mm[Hg] Lab Results None recorded. Allergies Code Code System Name Reaction Severity Status Onset 5640 RxNorm Ibuprofen Active 03/18/2017 979616 RxNorm Peanut Active 06/19/2018 1191 RxNorm Aspirin Itching Active 2670 RxNorm Codeine Active 346984 RxNorm Dilaudid Active 20240520 RxNorm Motrin Hives Active Penicillins Hives Active Problems Name Status Onset Date Source Type 2 Diabetes Mellitus Active 06/19/2016 Diabetic Peripheral Neuropathy Active 06/19/2016 Hyperlipidemia Active 06/19/2016 Anxiety Active 06/19/2016 Hypertensive Disorder Active 06/19/2016 Cardiac Arrhythmia Active 06/19/2016 Chronic Obstructive Lung Disease Active 06/19/2016 Chronic Back Pain Active 06/19/2016 Type II Diabetes Mellitus Uncontrolled Active 08/20/2016 Lightheadedness Active 08/20/2016 Dyspnea Active 08/20/2016 Body Mass Index 40+ - Severely Obese Active 08/20/2016 Mixed Hyperlipidemia Active 09/18/2016 Insomnia Active 09/18/2016 Benign Essential Hypertension Active 09/18/2016 Congestive Heart Failure Active 09/18/2016 Low Back Pain Active 09/18/2016 History of Tobacco Use Active 09/18/2016 Depressive Disorder Active 11/27/2016 Stable Angina Active 11/27/2016 Diabetic Neuropathy Active 01/06/2017 Eczema Active 01/06/2017 Moderate Depression Active 04/08/2017 Acute Exacerbation of Chronic Obstructive Airways Disease Active Procedures Date Name Performed by 10/24/2018 Screening for Occult Blood in Feces Information not available 10/13/2009 Colonoscopy with Biopsy Information not available Cataract Surgery Information not available Delivery Information not available Cholecystectomy (Gall Bladder Removal) Information not available Hysterectomy (Partial) Information not available Vaccine List Vaccine Type influenza, high dose seasonal 08/07/20170.5 mL 07/07/20180.5 mL influenza, seasonal, injectable 08/07/20160.5 mL influenza, unspecified formulation 10/13/2014 pneumococcal conjugate PCV 13 03/16/20180.5 mL pneumococcal polysaccharide PPV23 09/18/20160.5 mL Tdap 10/13/2015 zoster 11/27/20160.65 mL Social History Smoking Status Former Smoker Past Encounters 11/25/2018 Adult Health Examination; Advance Directive Discussed with Patient; Depression Screening; Alcohol Consumption Screening; Depression Screening Positive; Acute Urinary Tract Infection Marcelo Bender MD: [address] [place] [address], Ph. History of Present Illness Mini Cog Reported By: Patient Functional Ability: Personal/Social/ Draw a clock and write in the numbers in the correct place, and set the time to 10 minutes after 11 o'clock was completed correctly? Yes, 3 word recall: Your nurse or doctor will ask you to remember 3 words. In 5 minutes, they will ask you to repeat them. Patient recalled 2 words Note:Dysuria since 5 days ago. Concomitantly, urinary frequency, suprapubic pain and urgency. Denies hematuria or fever. Review of Systems:ROS as noted in the HPI Review of Systems None recorded. Physical Exam General Adult Exam (male) Reported By: Patient Constitutional: General Appearance: healthy-appearing, morbidly obese. Level of Distress: NAD. Ambulation: ambulating normally Psychiatric: Insight: good judgement. Mental Status: active and alert, normal mood, normal affect. Orientation: to time, to place, to person. Memory: recent memory normal, remote memory normal Eyes: Lids and Conjunctivae: non-injected, no discharge. EOM: EOMI ENMT: Ears: TMs clear. Oropharynx: moist mucous membranes Neck: Neck: supple, trachea midline Lungs: Auscultation: breath sounds normal Cardiovascular: Heart Auscultation: RRR, normal S1, normal S2, no murmurs Abdomen: Inspection and Palpation: soft, non-distended, no tenderness, no guarding, no rebound tenderness, no masses, no CVA tenderness Musculoskeletal:: Motor Strength and Tone: normal, normal tone. Joints, Bones, and Muscles: normal movement of all extremities, no contractures, no bony abnormalities, no malalignment. Extremities: no edema Neurologic: Gait and Station: normal gait. Sensation: grossly intact. Reflexes: DTRs 2+ bilaterally throughout Skin: Inspection and palpation: no rash, no lesions
--- OUTSIDE RECORDS SUMMARY | 2019-08-28 15:46 | XMS REPORT | Encounter Summary ---
Author Organization Unknown Address [address] [place] [address] Phone [phone] Care Team Providers Care Lumber Marker Name Role Phone Dr. Vicenta Todd 3 [phone] Carole Palacio MD 82 [phone] Alex Diaz MD 111 [phone] Lucia Treadwell DO 113 [phone] Jo Ann Wheeler MD 114 [phone] Dax Oshea MD (Endocrinology) 119 [phone] Pita Mills MD 129 [phone] Reason for Visit Low back pain; Eczema Instructions 1. Thoracic back pain tramadol 50 mg tablet 2. Eczema clobetasol 0.05 % topical cream 3. Body mass index 40+ - severely obese body mass index: care instructions learning about healthy weight 4. Low back pain 5. Normal grief reaction temazepam 22.5 mg capsule 6. Osteoporosis alendronate 70 mg tablet Discussion Note: None recorded. Plan of Care Reminders Provider Appointments Est Patient 04/02/2019 8:45AM Vicenta Todd MD Lab None recorded. Referral None recorded. Procedures None recorded. Surgeries None recorded. Imaging None recorded. Medications Name Start Date Advair Diskus 500 mcg-50 mcg/dose powder for inhalation INHALE 2 PUFF(S) EVERY DAY BY INHALATION ROUTE. albuterol sulfate 2.5 mg/3 mL (0.083 %) solution for nebulization INHALE 3 MILLILITERS (2.5 MG) BY NEBULIZATION ROUTE NEEDED EVERY 4-6 HRS alendronate 70 mg tablet Take 1 tablet every week by oral route as directed. alprazolam 0.25 mg tablet Take 1 tablet [...] topical cream TID to left knee 04/08/2017 Farxiga 5 mg tablet furosemide 40 mg tablet TAKE 1 TABLET [...] day by oral route as needed. metformin 1,000 mg tablet metformin 500 mg tablet Take 1 tablet twice a day by oral route for 90 days. montelukast 10 mg tablet TAKE 1 TABLET BY MOUTH EVERY DAY nitrofurantoin monohydrate/macrocrystals 100 mg capsule nitroglycerin 0.[address] 1 [...] 1 capsule every day by inhalation route. sulfamethoxazole 800 mg-trimethoprim 160 mg tablet Take 1 tablet every 12 hours by oral route for 10 days. temazepam 15 mg capsule Take 1 capsule every day by oral route. temazepam 22.5 mg capsule Take 1 capsule every day by oral route. tizanidine 4 mg tablet Take 1 tablet as needed by oral route at bedtime for 14 days. tramadol 50 mg tablet Take 1 tablet twice a day by oral route as needed for 90 days. trazodone 100 mg tablet TAKE 1 TABLET BY MOUTH EVERY DAY Tresiba FlexTouch U-100 insulin 100 unit/mL (3 mL) subcutaneous pen Wellbutrin SR 150 mg tablet, 12 hr sustained-release QD Medications Administered None recorded. Vitals Height Weight BMI Blood Pressure 5 ft 4 in 293 lbs 50.3 kg/m2 136/82 mm[Hg] Lab Results None recorded. Allergies Code Code System Name Reaction Severity Status Onset 1191 RxNorm Aspirin Active 05/13/2011 2670 RxNorm Codeine Active 05/13/2011 5640 RxNorm Ibuprofen Active 03/18/2017 652162 RxNorm Peanut Active 06/19/2018 561049 RxNorm Dilaudid Active 083140 RxNorm Motrin Hives Active Penicillins Hives Active [...] Eczema Active 01/06/2017 Moderate Depression Active 04/08/2017 Osteoporosis Active 01/01/2019 Acute Exacerbation of Chronic Obstructive Airways Disease Active Procedures Date Name Performed by 10/24/2018 Screening for Occult Blood in Feces Information not available 10/13/2009 Colonoscopy with Biopsy Information not available Cholecystectomy (Gall Bladder Removal) Information not available Cataract Surgery Information not [...] History Smoking Status Former Smoker Past Encounters 01/01/2019 Thoracic Back Pain; Eczema; Body Mass Index 40+ - Severely Obese; Low Back Pain; Normal Grief Reaction; Osteoporosis Vicenta Todd MD: [id number] [place] [address], Ph. History of Present Illness Note:68yo female presents for three-month follow-up. Here today for medication refills. Last visit was [facility] on 11/25/18. Pt had UTI on that day - urine culture grew Klebsiella. Pt was given Cipro, but pharmacy wouldn't fill it due to interaction with other medications. A few days later, pt went to urgent care for same UTI and was given Bactrim which cleared the infection.<div>Pt saw her endo, Dr Oshea in Oct 2018. Last A1c was 6.3%. No change to medications for diabetes. Next appt in January 2019.</div><div>Since last visit, pt had both mammogram & bone density testing on 11/04/18 at the [facility] showing normal mammogram & osteoporosis. </div><div>Discussed osteoporosis - will start weekly Fosamax & encouraged daily calcium, vit D and wt-bearing exercise.< /div><div>Younger brother had brain tumors and on December 13, 2018. Since then, pt has had trouble sleeping.</div><div>
</div><div>PMHx:</div>< div>COPD - Hhospitalized for five days from 06/17 - 06/22/18 at [facility] for COPD exacerbation. Since then, has followed up with Dr. Burns, pul, for sleep study. Completed sleep study [facility] on Jul 17. Pt not on CPAP yet.</div><div><div>
</div><div>Hx of intermittent dizziness/vertigo. Would like refill of meclizine which she has taken in past from Dr Guerra. </div><div>Completed 30-day Holter monitor with assistant refinery operator, Dr. Colbert in Jun 2018 - normal per pt.</div><div>Has been wearing compression stockings. No swelling of LEs. Healed both left LE ulcers - had been tx'd at . <span style="font-size: 14px;">[facility] and was given compression stockings, compression socks and referral to see vein specialist with </span>Katie<span style="font-size: 14px;">, vein specialist on [place]. Was released from the wound care center.</span></div><div>
< /div><div>Followed every three months by Dr Oshea endo for DM.</div><div>Has severe diabetic neuropathy, followed by pain management, Dr. Knight, and neur ology, Dr. Mills. On gabapentin.</div><div>
</div><div>Pt continues to see her regular psychiatrist in [place] every 90 days. No recent change in psych medications. </div><div>
</div><div>Is followed by endocrinology Dr. Oshea for diabetes which she has had for past [address] Oshea every 90 days for bloodwork & medication. For diabetes, currently on metformin, glyburide, invokana, and Tresiba insulin 14units at night.
</div><div>
< /div><div>Is followed by Dr. Palacio, cardiology for arrhythmia.
</div>< div>
</div><div>Is followed by Dr. Wheeler, heike, for hx of COPD. Quit smoking in Jun 2017. Still not smoking! Pt is still using asthma inhalers/neb as prescribed by Dr. Wheeler.</div></div> Review of Systems:ROS as noted in the HPI Review of Systems Comprehensive General Adult ROS Reported By: Patient Constitutional: Constitutional: no fever Eyes: Eyes: no vision change Cardiovascular: Cardiovascular: no chest pain Respiratory: Respiratory: no cough, no wheezing, shortness of breath, sleep apnea Gastrointestinal: Gastrointestinal: no abdominal pain Integumentary: Skin: no rashes; left leg ulcers are healed Neurologic: Neurologic: no loss of consciousness, no seizures, no migraines, no headaches, no tremor, weakness, dizziness Psychiatric: Psych: no depression, no suicidal thoughts, anxiety Physical Exam General Adult Exam (Female), Musculoskeletal and Joint Exam Reported By: Patient Constitutional: General Appearance: healthy-appearing, well-developed, morbidly obese. Level of Distress: NAD. Ambulation: ambulating normally Psychiatric: Insight: good judgement. Mental Status: active and alert, normal mood, normal affect. Orientation: to time, to place, to person Head: Head: normocephalic, atraumatic Eyes: Lids and Conjunctivae: non-injected. Pupils: PERRLA. EOM: EOMI. Sclerae: non-icteric ENMT: Hearing: no hearing loss. Oropharynx: moist mucous membranes Neck: Thyroid: non-tender, no nodules Lungs: Respiratory effort: no dyspnea. Auscultation: breath sounds normal, good air movement, no wheezing, no rales/crackles; no wheeze on exam today. Needs follow-up with Dr. Grant burroughs/Liam Cardiovascular: Heart Auscultation: RRR, normal S1, normal S2, no murmurs. Neck vessels: no carotid bruits Abdomen: Bowel Sounds: normal. Inspection and Palpation: soft Musculoskeletal:: Joints, Bones, and Muscles: normal movement of all extremities. Extremities: no edema; no edema on exam today. Right Knee: no tenderness Neurologic: Gait and Station: normal gait Skin: Inspection and palpation: no lesions, rash; hyperpigmentation of both LEs. Healing rash under both breasts and in skin fold of lower abdomen. No ulceration.Ecchymosis on back of hand - see photo
--- OUTSIDE RECORDS SUMMARY | 2019-08-28 15:46 | XMS REPORT | Encounter Summary ---
Author Organization Unknown Address [address] [place] [address] Phone [phone] Care Team Providers Care Social Work Specialist Name Role Phone Dr. Vicenta Todd 3 [phone] Carole Palacio MD 82 [phone] Alex Diaz MD 111 [phone] Stephanie Amaya MD 113 [phone] Jo Ann Wheeler MD 114 [phone] Damian Goldstein MD 119 [phone] Pita Mills MD 129 [phone] Reason for Visit Bilateral leg problem; lab follow-up Instructions 1. Congestive heart failure cardiology referral - [facility] [place]ULT[place] REFERRAL THE FIRST VISIT MUST OCCUR WITHIN 90 DAYS BALANCE WITHIN 1 YEAR OF EFFECTIVE DATE 2. Type 2 diabetes mellitus glyburide 5 mg tablet endocrinology referral - [facility] [place]ULTIPLE [place]IT REFERRAL THE FIRST VISIT MUST OCCUR WITHIN 90 DAYS BALANCE WITHIN 1 YEAR OF EFFECTIVE DATE 3. Low back pain pain management referral - *Please call the patient and make an appointment* PLEASE SEND BACK CONSULT NOTES TO [phone] 4. Chronic obstructive lung disease career developer referral - [facility] MULTIPLE VISIT REFERRAL THE FIRST VISIT MUST OCCUR WITHIN 90 DAYS BALANCE WITHIN 1 YEAR OF EFFECTIVE DATE 5. Body mass index 40+ - severely obese body mass index: care instructions learning about healthy weight 6. Severe obesity 7. Influenza vaccination Fluzone High-Dose 2019-20 (PF) 180 mcg/0.5 mL intramuscular syringe 8. Diabetic peripheral neuropathy walker rollator 9. Moderate depression psychiatry referral - PLEASE CALL PATIENT TO SCHEDULE APPT 10. Hypertensive disorder Discussion Note: None recorded. Plan of Care Reminders Provider Appointments Home Visit 09/28/2019 9:30AM Hillary Hinson NP Lab None recorded. Referral Chief Librarian Circulation Department Referral 06/28/2019 Jo Ann Wheeler MD Endocrinology Referral 06/28/2019 Damian Goldstein MD Cardiology Referral 06/28/2019 Carole Palacio Psychiatry Referral 06/28/2019 Miesha Rosenbaum MD Pain Management Referral 06/28/2019 Dinh Awan MD Procedures None recorded. Surgeries None recorded. Imaging [...] TABLET BY MOUTH EVERY DAY BD Ultra-Fine Mini Pen Needle 31 gauge x 3/16" BD Ultra-Fine Coby Pen Needle 32 gauge x 5/32" QD bupropion HCl SR 200 mg tablet,12 hr sustained-release Take 1 tablet twice a day by oral route for 30 days. Centrum 1 tab a day cholecalciferol (vitamin D3) 1,000 unit capsule ONCE DAILY OTC citalopram 40 mg tablet TAKE 1 TABLET(S) [...] left knee 04/08/2017 Farxiga 5 mg tablet Take 1 tablet every day by oral route for 90 days. furosemide 40 mg tablet TAKE 1 TABLET BY MOUTH EVERY DAY gabapentin 800 mg tablet TAKE 1 TABLET BY MOUTH 3 TIMES A DAY glyburide 5 mg tablet Take 2 tablets twice a day by oral route. hydroxyzine HCl 10 mg tablet BID lisinopril 5 mg tablet QD meclizine 25 mg tablet Take 1 tablet 3 times a day by oral route as needed. metformin 500 mg tablet Take 1 tablet twice a day by oral route for 90 days. montelukast 10 mg tablet TAKE 1 TABLET BY MOUTH EVERY DAY nitroglycerin 0.[address] 1 TABLET BY SUBLINGUAL ROUTE EVERY DAY NEEDED Nystop 100,000 unit/gram topical powder APPLY TO THE AFFECTED AREA(S) BY TOPICAL ROUTE 2 TIMES PER DAY OneTouch Delica Lancets 30 gauge Take 1 [...] insulin 100 unit/mL (3 mL) subcutaneous pen Inject 14 units every day by subcutaneous route. Wellbutrin SR 150 mg tablet, 12 hr sustained-release QD Medications Administered None recorded. Vitals Height Weight BMI Blood Pressure 5 ft 4 in 297 lbs 51 kg/m2 130/82 mm[Hg] Results Lab Results None recorded. Allergies Code Code System Name Reaction Severity Status Onset 5640 RxNorm Ibuprofen Active 03/18/2017 239141 RxNorm Peanut Active 06/19/2018 1191 RxNorm Aspirin Itching Active 2670 RxNorm Codeine Active 384058 RxNorm Dilaudid Active 625908 RxNorm Motrin Hives Active Penicillins Hives Active [...] Moderate Depression Active 04/08/2017 Osteoporosis Active 01/01/2019 Degeneration of Lumbar Intervertebral Disc Active 05/04/2019 Acute Exacerbation of Chronic Obstructive Airways Disease [...] high dose seasonal 08/07/20170.5 mL 07/07/20180.5 mL 06/28/20190.5 mL influenza, seasonal, injectable 08/07/20160.5 mL influenza, unspecified formulation 10/13/2014 pneumococcal conjugate PCV 13 03/16/20180.5 mL pneumococcal polysaccharide PPV23 09/18/20160.5 mL Tdap 10/13/2015 zoster 11/27/20160.65 mL Social History Tobacco Smoking Status Former Smoker Past Encounters 06/28/2019 Congestive Heart Failure; Type 2 Diabetes Mellitus; Low Back Pain; Chronic Obstructive Lung Disease; Body Mass Index 40+ - Severely Obese; Severe Obesity; Influenza Vaccination; Diabetic Peripheral Neuropathy; Moderate Depression; Hypertensive Disorder Vicenta Todd MD: [address] [place] [address], Ph. History of Present Illness Note:69yo female presents for follow-up visit. Last visit 05/10/19. <div>Here today to update referrals to specialists for upcoming appts.</div><div>
</div ><div>Since last visit, pt had f/u with pain management, Dr Dinh Awan about 05/20/19 and had second injection to L5 on the left (first injection was 05/07/19). Next appt with Dr Awan in 90 days in Nov to consider injection to the knees for arthritis.<div>Pt notes that she fell last week (Fri) in bathtub. Slipped when she was reaching for something & fell on left side with bruising on lateral thigh & left shoulder. Hit her head on tub, but no LOC. Bruises are healing. Would like to get walker with seat (rollator). Never did get Piper- round scooter in 09/2017.</div><div>Since last visit, pt had regular 90-day f/u with psychiatrist, Dr Mark Minor in [place]. She changed timing of medication of bupropion to 200mg qam & 200mg at noon instead of 300mg qam - pt feeling better on split dose.</div><div>Since time of last visit, pt saw Dr Guy, cardiac exercise specialist in mid-May. No change to medication but return visit in 1mo.</div> <div>Has not set up appt with Dr Liam burroughs.</div><div>Saw Dr Alex Diaz, ophtho earlier this morning (06/28/19). Goes back at end of month for further testing for possible glaucoma. No diabetic retinopathy.</div><div>
Previously:
<div>Pt unable to see Dr Triston tian until Aug 03, 2019. Was followed by Dr Oshea in past, but he no longer takes her insurance.
</div><div >Currently for DM is taking Tresiba 14units qpm, metformin 1000mg bid, glyburide 5mg two tablets bid, Farxiga 10mg qd. No longer on Invokana.

</div><div> Has normal bilateral breast US at [facility] on 04/06/19 - repeat mammo in 1yr (03/14 020).</div><div>
</div><div>Requests refill of meclizine for intermittent vertigo & dizziness. Has had current episode for past 3days. No falls, using cane for stability. Brief episode about 3-4 minutes about 2-3x/day. Has used meclizine in past with good results.</div><div>
</div><div>Left leg swelling resolved with extra doses of Lasix for three days. Rash under breast improved with medication.</div></div></div> Review of Systems:ROS as noted in the HPI Review of Systems Comprehensive General Adult ROS Reported By: Patient Constitutional: Constitutional: no fever Eyes: Eyes: no vision change Cardiovascular: Cardiovascular: no chest pain Respiratory: Respiratory: no cough, no wheezing, sleep apnea Gastrointestinal: Gastrointestinal: no abdominal pain Integumentary: Skin: no rashes; left leg ulcers are healed, rash under both breasts healed Neurologic: Neurologic: no loss of consciousness, no seizures, no migraines, no headaches, no tremor, weakness, dizziness Psychiatric: Psych: no depression, no suicidal thoughts, anxiety Physical Exam Lower Leg, General Adult Exam (Female) Reported By: Patient Constitutional: General Appearance: NAD, well-developed, morbidly obese Gait and Station: Appearance: waddling gait (Trendelenburg), ambulates with cane; with cane Cardiovascular System: Heart Auscultation: RRR, normal S1, normal S2, no murmurs, no rubs, no gallops Neurologic: Cranial Nerves: grossly intact. Sensation: grossly intact Psychiatric: Orientation: oriented to time, oriented to place, oriented to person. Mood and Affect: active and alert, normal affect, normal mood. Insight: good judgement Head: Head: normocephalic, atraumatic Lungs: Respiratory effort: no dyspnea. Auscultation: breath sounds normal, good air movement, CTA except as noted, no wheezing, no rales/crackles, no rhonchi Musculoskeletal:: Motor Strength and Tone: normal motor strength, normal tone. Joints, Bones, and Muscles: normal movement of all extremities, no bony abnormalities, no contractures, no malalignment, no tenderness. Extremities: no cyanosis, no varicosities, edema Back: Thoracolumbar Appearance: normal curvature
--- OUTSIDE RECORDS SUMMARY | 2019-08-28 15:46 | XMS REPORT | Encounter Summary ---
Author Organization Unknown Address [address] [place] [address] Phone [phone] Care Team Providers Care French Folder Name Role Phone Dr. Vicenta Todd 3 [phone] Carole Palacio MD 82 [phone] Alex Diaz MD 111 [phone] Lucia Treadwell DO 113 [phone] Jo Ann Wheeler MD 114 [phone] Dax Oshea MD (Endocrinology) 119 [phone] Pita Mills MD 129 [phone] Reason for Visit Bilateral breast problems; Bilateral knee pain/problem Instructions 1. Type 2 diabetes mellitus BD Ultra-Fine Coby Pen Needle 32 gauge x 5/32" endocrinology referral glyburide 5 mg tablet BD Ultra-Fine Short Pen Needle 31 gauge x 5/16" BD Ultra-Fine Mini Pen Needle 31 gauge x 3/16" BD Ultra-Fine Original Pen Needle 29 gauge x 1/2" home visiting referral 2. Body mass index 40+ - severely obese body mass index: care instructions learning about healthy weight 3. Morbid obesity 4. Thoracic back pain tramadol 50 mg tablet 5. Bilateral knee pain pain management referral - Please call patient and schedule her an appointment. 6. Candidal intertrigo fluconazole 150 mg tablet Discussion Note: None recorded. Plan of Care Reminders Provider Appointments Est Patient 05/04/2019 10:15AM Vicenta Todd MD Lab None recorded. Referral Endocrinology Referral 04/06/2019 Pain Management Referral 04/06/2019 Dinh Awan MD Home Visiting Referral 04/11/2019 [place] (p) [facility] Procedures None recorded. Surgeries None recorded. Imaging [...] day by oral route for 90 days. fluconazole 100 mg tablet Take 1 tablet every day by oral route for 3 days. fluconazole 150 mg tablet Take 1 tablet every day by oral route as directed for 1 day. furosemide 40 mg tablet TAKE 1 TABLET [...] oral route as needed for 90 days. No alcohol or driving when on this medicine trazodone 100 mg tablet TAKE 1 TABLET BY MOUTH EVERY DAY Tresiba FlexTouch U-100 insulin 100 unit/mL (3 mL) subcutaneous pen Wellbutrin SR 150 mg tablet, 12 hr sustained-release QD Medications Administered None recorded. Vitals Height Weight BMI Blood Pressure 5 ft 4 in 297.6 lbs 51.1 kg/m2 138/72 mm[Hg] Lab Results Date Name Specimen Result Interpretation Description Value Range Status Address 03/15/2019 Microalbumin:creatinine Ratio, Urine Microalbumin Random Urine 13 ug/mL [facility] Laboratory: [address] [place] [address] Normal Creatinine Random Urine 100.2 mg/dL 20.0-320.0 mg/dL Final [facility] Laboratory: [address] [place] [address] Normal Microalbumin/creatinine (Random Urine) Ratio Calculated 13 mcg/mg creat Final [facility] Laboratory: [address] [place] [address] 03/15/2019 CBC W/ Auto Diff Wbc 7.50 x10*3/L 3.98-10.04 x10*3/L Final [facility] Laboratory: [address] [place] [address] Rbc 4.68 10*12/L 3.93-5.22 10*12/L Final [facility] Laboratory: [address] [place] [address] Hemoglobin 14.00 g/dL 11.20-15.70 g/dL Final [facility] Laboratory: [address] [place] High Hematocrit 45.1 % 34.1-44.9 % Final [facility]: [address] [place] Mcv 96.4 fL 80.0-100.0 fL Final [facility]: [address] [place] Mch 29.9 pg 25.6-32.2 pg Final [facility]: [address] [place] Low Mchc 31.0 g/dL 32.2-35.5 g/dL Final [facility]: [address] [place] RDW-SD 46.2 fL 36.4-46.3 fL Final [facility] [address] [facility] 230.0 k/uL 182.0-369.0 k/uL Final [facility]: [address] [place] Mpv 11.1 fL 7.5-11.5 fL Final [facility]: [address] [place] Neut% 64.2 % 34.0-71.1 % Final [facility]: [address] [place] Lymph% 27.1 % 19.3-51.7 % Final [facility]: [address] [place] Mon% 6.7 % 4.7-12.5 % Final [facility]: [address] [place] Eos% 1.6 % 0.7-5.8 % Final [facility] [address] [facility] Baso% 0.4 % 0.1-1.2 % Final [facility]: [address] [place] Neut# 4.8 x10*3/L 1.6-6.1 x10*3/L Final [facility]: [address] [place] Lymph# 2.0 x10*3/L 1.2-3.7 x10*3/L Final [facility]: [address] [place] Mon# 0.5 x10*3/L 0.2-0.9 x10*3/L Final [facility]: [address] [place] Eos# 0.12 x10*3/L 0.04-0.36 x10*3/L Final [facility]: [address] [place] Baso# 0.03 x10*3/L 0.01-0.08 x10*3/L Final [facility]: [address] [facility] 03/15/2019 CMP, Serum or Plasma Alt 12 U/L 0-55 U/L Final [facility]: [address] Ast 17 U/L 5-34 U/L Final [facility]: [address] Bun 15.7 mg/dL 9.8-25.0 mg/dL Final [facility]: [address] Alk Phos 74 unit/L 40-150 unit/L Final [facility]: [address] Glucose 83 mg/dL 70-99 mg/dL Final [facility]: [address] Albumin 3.7 g/dL 3.4-5.1 g/dL Final [facility]: [address] Creatinine 0.90 mg/dL 0.57-1.11 mg/dL Final [facility]: [address] eGFR Non- >60 mL/min/1.73m2 Final [facility]: [address] Total Bilirubin 0.4 mg/dL 0.2-1.2 mg/dL Final [facility]: [address] eGFR - >60 mL/min/1.73m2 Final [facility]: [address] Sodium 143 mEq/L 135-145 mEq/L Final [facility]: [address] Potassium 5.0 mEq/L 3.5-5.1 mEq/L Final [facility]: [address] Chloride 106 mmol/L 98-110 mmol/L Final [facility]: [address] Total Protein 6.9 g/dL 6.1-8.2 g/dL Final [facility]: [address] Calcium 9.6 mg/dL 8.6-10.4 mg/dL Final [facility]: [address] Co2 26.9 mmol/L 20.0-32.0 mmol/L Final [facility]: [address] Anion Gap 10 calc Final [facility]: [address] 03/15/2019 Lipid Panel, Serum Low Hdl 45 mg/dL 50-0 mg/dL Final [facility]: [address] Triglyceride 88 mg/dL 0-150 mg/dL Final [facility]: [address] VLDL (Calculated) 18 mg/dL Final [facility]: [address] cholesterol/HDL Ratio 3.1 mg/dL Final [facility]: [address] non-HDL Cholesterol (Calculated) 95 mg/dL 0-160 mg/dL Final [facility]: [address] Cholesterol 140 mg/dL 0-200 mg/dL Final [facility]: [address] LDL (Calculated) 77 mg/dL 0-130 mg/dL Final [facility]: [address] 03/15/2019 TSH, Serum or Plasma Tsh 1.169 uIU/mL 0.350-4.940 uIU/mL Final [facility]: [address] 03/15/2019 HbA1C (Hemoglobin a1C), Blood High A1C W/eag 6.7 % 1.0-5.7 % Final [facility]: [address] Average Blood Glucose 146 mg/dL Final [facility]: [address] Allergies Code Code System Name Reaction Severity Status Onset 5640 RxNorm Ibuprofen Active 03/18/2017 907880 RxNorm Peanut Active 06/19/2018 1191 RxNorm Aspirin Itching Active 2670 RxNorm Codeine Active 456725 RxNorm Dilaudid Active 042532 RxNorm Motrin Hives Active Penicillins Hives Active [...] not available Hysterectomy (Partial) Information not available 03/31/2019 US, Breast, Unilateral [facility] [address] [place] [address] (Work Place) Vaccine List Vaccine Type influenza, high dose seasonal 08/07/20170.5 mL 07/07/20180.5 mL influenza, seasonal, injectable 08/07/20160.5 mL influenza, unspecified formulation 10/13/2014 pneumococcal conjugate PCV 13 03/16/20180.5 mL pneumococcal polysaccharide PPV23 09/18/20160.5 mL Tdap 10/13/2015 zoster 11/27/20160.65 mL Social History Smoking Status Former Smoker Past Encounters 04/06/2019 Type 2 Diabetes Mellitus; Body Mass Index 40+ - Severely Obese; Morbid Obesity; Thoracic Back Pain; Bilateral Knee Pain; Candidal Intertrigo Vicenta Todd MD: [address] [place] [address], Ph. 03/31/2019 Body Mass Index 40+ - Severely Obese; Morbid Obesity; Thoracic Back Pain; Candidal Intertrigo; Diabetic Peripheral Neuropathy; Mastodynia of Left Breast; Venous Stasis Portia Gaming MD: [address] [place] [address], Ph. 03/15/2019 Intertrigo; Type 2 Diabetes Mellitus; Hyperlipidemia; Benign Essential Hypertension; Body Mass Index 40+ - Severely Obese; Morbid Obesity; Congestive Heart Failure; Diabetic Neuropathy; Moderate Depression; Chronic Obstructive Lung Disease; Chronic Back Pain Vicenta Todd MD: [address] [place] [address], Ph. History of Present Illness Note:<div>68yo female presents for one-week follow-up visit. Last visit was 03/31/[address] Gaming for left breast pain, rash under breasts, & left leg swelling. Pt notes that all three issues are improving. Has been taking Bactrim as prescribed & using the nystatin powder under the breasts. Would like fluconazole - not filled by pharmacy last week.</div><div>Pt did double up on lasix to 40mg bid for three days with extra potassium & notes that the swelling in her leg is better. Has not made appt with ticketing agent yet. Did wear compression hose above knee for a whole day, but had such pain in legs could not walk for two days! Knees felt wobbly afterwards. Dr Colbert is ticketing agent - last visit about 3mo ago.</div><div>No longer seeing sudhir Watkins for DM. Would like referral to quique peguero. Needs pen needles refilled today.< /div><div>Currently for DM is taking Tresiba 14units qpm, metformin 1000mg bid, glyburide 5mg two tablets bid</div><div>Has appt tomorrow 03/28/19 at [facility] for left breast US.</div><div>Has appt on 04/14/19 with pain management, Dr Mayes. Needs referral to say bilateral knee pain AND chronic backpain.</div><div>
< /div><div>Previously:</div>Here because she has issues with her legs - Lt leg swelling x3 days & will not resolve with lasix - doubled it up 40mg bid , Chest feels heavy x 3 days , Last seen cardiology 3 mths ago , leg feels heavy as she has to drag her legs , ch pain in both lower extremities <div>Rash returned under the breasts again , WEnt away for 1 week & its back .Clobetasol was used.</div><div>Lt breast galaviz bad - Since 3 days ago , No fever m chills x 3 days , redness & swelling +, has the referal to see cardiology , will see him soon </div> Review of Systems:ROS as noted in the HPI Review of Systems Comprehensive General Adult ROS Reported By: Patient Constitutional: Constitutional: no fever Eyes: Eyes: no vision change Cardiovascular: Cardiovascular: no chest pain Respiratory: Respiratory: no cough, no wheezing, sleep apnea Gastrointestinal: Gastrointestinal: no abdominal pain Integumentary: Skin: rash; left leg ulcers are healed, rash under both breasts Neurologic: Neurologic: no loss of consciousness, no seizures, no migraines, no headaches, no tremor, weakness, dizziness Psychiatric: Psych: no depression, no suicidal thoughts, anxiety Physical Exam General Adult Exam (Female) Reported By: Patient Constitutional: General Appearance: well-developed, morbidly obese. Level of Distress: mild distress. Ambulation: ambulation with cane Psychiatric: Insight: good judgement. Mental Status: active and alert, normal mood, normal affect. Orientation: to time, to place, to person Head: Head: normocephalic, atraumatic Eyes: Lids and Conjunctivae: non-injected, no discharge, no pallor. Pupils: PERRLA. Corneas: grossly intact. EOM: EOMI. Lens: clear. Sclerae: non-icteric ENMT: Ears: no lesions on external ear, EACs clear, TMs clear. Hearing: no hearing loss. Nose: no lesions on external nose, nares patent, no septal deviation, nasal passages clear, no sinus tenderness, no nasal discharge. Lips, Teeth, and Gums: no mouth or lip ulcers, no bleeding gums, normal dentition. Oropharynx: moist mucous membranes, no erythema, no exudates, tonsils not enlarged Neck: Neck: supple, trachea midline, no masses, FROM. Lymph Nodes: no cervical LAD, no supraclavicular LAD, no axillary LAD. Thyroid: no enlargement, non- tender, no nodules Lungs: Respiratory effort: no dyspnea. 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 Breast: normal appearance; no masses palpable in Lt breast , u/s Lt breast if not resolved with Abx, no erythema / no edema of breast Abdomen: Bowel Sounds: normal. Inspection and Palpation: soft, non-distended, no tenderness, no guarding, no rebound tenderness, no masses, no CVA tenderness. Liver: non-tender, no hepatomegaly Musculoskeletal:: Motor Strength and Tone: normal motor strength, normal tone. Joints, Bones, and Muscles: normal movement of all extremities, no bony abnormalities, no contractures, no malalignment, no tenderness. Extremities: no cyanosis, no varicosities, edema; increased discomofrt to even mild palpation of both lower extremities below the Knees jean ( chronic / pt ) no calf discomfort Neurologic: Gait and Station: normal gait, normal station. Cranial Nerves: grossly intact. Sensation: grossly intact Skin: Inspection and palpation: no rash, no lesions, no abnormal nevi, good turgor, no jaundice; erythematous & dry patchy skin under jean breasts with satelite lesions. Nails: normal Back: Thoracolumbar Appearance: normal curvature
--- OUTSIDE RECORDS SUMMARY | 2019-08-28 15:46 | XMS REPORT | Encounter Summary ---
Author Organization Unknown Address [address] [place] [address] Phone [phone] Care Team Providers Care Fill Plant Operator Name Role Phone Dr. Vicenta Todd 3 [phone] Carole Palacio MD 82 [phone] Alex Diaz MD 111 [phone] Lucia Treadwell DO 113 [phone] Jo Ann Wheeler MD 114 [phone] Dax Oshea MD (Endocrinology) 119 [phone] Pita Mills MD 129 [phone] Reason for Visit Benign essential hypertension; Chronic back pain Instructions 1. Type 2 diabetes mellitus glyburide 5 mg tablet metformin 500 mg tablet Farxiga 5 mg tablet Tresiba FlexTouch U-100 insulin 100 unit/mL (3 mL) subcutaneous pen 2. Diabetic peripheral neuropathy 3. Degeneration of lumbar intervertebral disc 4. Body mass index 40+ - severely obese body mass index: care instructions 5. Morbid obesity 6. Benign essential hypertension Discussion Note: None recorded. Plan of Care Reminders Provider Appointments Est Patient 05/10/2019 10:30AM Vicenta Todd MD Home Visit on or around 08/04/2019 Loly Brand NP Lab None recorded. Referral None recorded. Procedures [...] BMI Blood Pressure 5 ft 4 in 299.4 lbs 51.4 kg/m2 122/60 mm[Hg] Lab Results None recorded. Allergies Code Code System Name Reaction Severity Status Onset 5640 RxNorm Ibuprofen Active 03/18/2017 417204 RxNorm Peanut Active 06/19/2018 1191 RxNorm Aspirin Itching Active 2670 RxNorm Codeine Active 223312 RxNorm Dilaudid Active 20240520 RxNorm Motrin Hives [...] History Smoking Status Former Smoker Past Encounters 05/04/2019 Type 2 Diabetes Mellitus; Diabetic Peripheral Neuropathy; Degeneration of Lumbar Intervertebral Disc; Body Mass Index 40+ - Severely Obese; Morbid Obesity; Benign Essential Hypertension Loly Brand NETWORK SECURITY ANALYST: [address] [facility], [address], [place] [address], Ph. 04/06/2019 Type 2 Diabetes Mellitus; Body Mass Index 40+ - Severely Obese; Morbid Obesity; Thoracic Back Pain; Bilateral Knee Pain; Candidal Intertrigo Vicenta Todd MD: [address] [place] [address], Ph. History of Present Illness Hypertension Reported By: Patient HPI: Severity: mild. Duration: has noted for years. Onset/Timing: better. Context: at rest, emotional stress. Alleviating Factors: medication. Aggravating Factors: recent diet change, salt intake. Self Care: not under emotional stress, using an NIESHA inhibitor, using calcium channel blockers. Associated Symptoms: no shortness of breath, no palpitations, no chest pain, no fatigue, no decline in exercise capacity, no snoring Diabetes Reported By: Patient HPI: Review finger sticks: monitoring glucose daily, normal range of home blood sugars (in the low 100s). Duration: chronic. Control: hemoglobin A1C has been less than 7, hemoglobin A1C goal is less than 7.5, BP usually runs 135-140/85-90, less than 135/85, goal is 135-140/85-90, less than 135/85. Compliance: compliant with medications, compliant with follow-up visits, compliant with diet, compliant with home glucose monitoring, no side effects from medications. Self Care: seeing eye doctor regularly, checking feet regularly. Associated Symptoms: no weight loss, no increased appetite, no increased urination, no blurred vision Complications and Co-morbidities: Chronic Complications: diabetic retinopathy: Yes, diabetic neuropathy: Yes, hypertension: Yes, hyperlipidemia: Yes. 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.</div> Review of Systems:ROS as noted in the HPI Review of Systems Comprehensive General Adult ROS Reported By: Patient Constitutional: Constitutional: no fever Eyes: Eyes: no vision change Cardiovascular: Cardiovascular: no chest pain Respiratory: Respiratory: no cough, no wheezing, sleep apnea Gastrointestinal: Gastrointestinal: no abdominal pain Musculoskeletal: Musculoskeletal: no muscle aches, arthralgias/joint pain, back pain, swelling in the extremities Integumentary: Skin: ; left leg ulcers are healed, rash under both breasts Neurologic: Neurologic: no loss of consciousness, no weakness, no numbness, no seizures, no dizziness, no migraines, no headaches, no tremor Psychiatric: Psych: no depression, no suicidal thoughts, anxiety Physical Exam General Adult Exam (Female) Reported By: Patient Constitutional: General Appearance: well-developed, morbidly obese. Level of Distress: NAD. [...] no erythema, no exudates, tonsils not enlarged Lungs: Respiratory effort: no dyspnea. 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 Breast: normal appearance; no masses [...]
--- OUTSIDE RECORDS SUMMARY | 2019-08-28 15:46 | XMS REPORT | Encounter Summary ---
Author Organization Unknown Address [address] [place] [address] Phone [phone] Care Team Providers Care Evp Managing Director Name Role Phone Dr. Vicenta Todd 3 [phone] Carole Palacio MD 82 [phone] Alex Diaz MD 111 [phone] Lucia Treadwell DO 113 [phone] Jo Ann Wheeler MD 114 [phone] Dax Oshea MD (Endocrinology) 119 [phone] Pita Mills MD 129 [phone] Reason for Visit Bilateral back pain; Bilateral breast problems; swelling/edema Instructions 1. Body mass index 40+ - severely obese body mass index: care instructions learning about healthy weight 2. Morbid obesity 3. Thoracic back pain tramadol 50 mg tablet 4. Candidal intertrigo nystatin 100,000 unit/gram topical powder fluconazole 100 mg tablet 5. Diabetic peripheral neuropathy 6. Mastodynia of left breast Bactrim DS 800 mg-160 mg tablet US, breast, unilateral 7. Venous stasis Discussion Note: None recorded. Plan of Care Reminders Provider Appointments Est Patient 04/06/2019 11:00AM Vicenta Todd MD DIESEL ENGINE ENGINEER/EST CPX on or around 04/07/2019 Portia Gaming MD Est Patient 06/21/2019 9:30AM Vicenta Todd MD Lab None recorded. Referral None recorded. Procedures None recorded. Surgeries None recorded. Imaging US, Breast, Unilateral 03/31/2019 [facility] Medications Name Start Date Advair Diskus 500 [...] TAKE 1 TABLET BY MOUTH EVERY DAY Bactrim DS 800 mg-160 mg tablet Take 1 tablet every 12 hours by oral route for 10 days. BD Ultra-Fine Coby Pen Needle 32 gauge [...] day by oral route for 3 days. furosemide 40 mg tablet TAKE 1 [...] TABLET BY SUBLINGUAL ROUTE EVERY DAY NEEDED nystatin 100,000 unit/gram topical powder APPLY TO THE [...] ft 4 in 297 lbs 51 kg/m2 130/68 mm[Hg] Lab Results Date Name Specimen Result Interpretation Description Value Range Status Address 03/15/2019 Microalbumin:creatinine Ratio, Urine Microalbumin Random Urine 13 ug/mL Final [facility]: [address] [place] [address] Normal Creatinine Random Urine 100.2 mg/dL 20.0-320.0 mg/dL Final [facility]: [address] [place] [address] Normal Microalbumin/creatinine (Random Urine) Ratio Calculated 13 mcg/mg creat Final [facility]: [address] 03/15/2019 CBC W/ Auto Diff Wbc 7.50 x10*3/L 3.98-10.04 x10*3/L Final [facility]: [address] Rbc 4.68 10*12/L 3.93-5.22 10*12/L Final [facility]: [address] Hemoglobin 14.00 g/dL 11.20-15.70 g/dL Final [facility]: [address] High Hematocrit 45.1 % 34.1-44.9 % Final [facility]: [address] Mcv 96.4 fL 80.0-100.0 fL Final [facility]: [address] [place] Mch 29.9 pg 25.6-32.2 pg Final [facility]: [address] [place] Low Mchc 31.0 g/dL 32.2-35.5 g/dL Final [facility]: [address] [place] RDW-SD 46.2 fL 36.4-46.3 fL Final [facility]: [address] [place] Platelet Count 230.0 k/uL 182.0-369.0 k/uL Final [facility]: [address] [place] Mpv 11.1 fL 7.5-11.5 fL Final [facility]: [address] [place] Neut% 64.2 % 34.0-71.1 % Final [facility]: [address] [place] Lymph% 27.1 % 19.3-51.7 % Final [facility]: [address] [place] Mon% 6.7 % 4.7-12.5 % Final [facility]: [address] [place] Eos% 1.6 % 0.7-5.8 % Final [facility]: [address] [place] Baso% 0.4 % 0.1-1.2 % Final [facility]: [address] [place] Neut# 4.8 x10*3/L 1.6-6.1 x10*3/L Final [facility]: [address] [place] Lymph# 2.0 x10*3/L 1.2-3.7 x10*3/L Final [facility]: [address] [place] Mon# 0.5 x10*3/L 0.2-0.9 x10*3/L Final [facility]: [address] [place] Eos# 0.12 x10*3/L 0.04-0.36 x10*3/L Final [facility]: [address] [facility] Baso# 0.03 x10*3/L 0.01-0.08 x10*3/L Final [facility]: [address] [facility] 03/15/2019 CMP, Serum or Plasma Alt 12 U/L 0-55 U/L Final [facility]: [address] [facility] Ast 17 U/L 5-34 U/L Final [facility]: [address] Bun 15.7 mg/dL 9.8-25.0 mg/dL Final [facility]: [address] Alk Phos 74 unit/L 40-150 unit/L Final [facility]: [address] Glucose 83 mg/dL 70-99 mg/dL Final [facility]: [address] Albumin 3.7 g/dL 3.4-5.1 g/dL Final [facility]: [address] Creatinine 0.90 mg/dL 0.57-1.11 mg/dL Final [facility]: [address] eGFR Non- >60 mL/min/1.73m2 Final [facility]: [address] [place] [address] Total Bilirubin 0.4 mg/dL 0.2-1.2 mg/dL Final [facility]: [address] eGFR - >60 mL/min/1.73m2 Final [facility]: [address] Sodium 143 mEq/L 135-145 mEq/L Final [facility]: [address] Potassium 5.0 mEq/L 3.5-5.1 mEq/L Final [facility]: [address] Chloride 106 mmol/L 98-110 mmol/L Final [facility]: [address] Total Protein 6.9 g/dL 6.1-8.2 g/dL Final [facility]: [address] Calcium 9.6 mg/dL 8.6-10.4 mg/dL Final [facility]: [address] Co2 26.9 mmol/L 20.0-32.0 mmol/L Final [facility]: [address] Anion Gap 10 calc Final [facility]: [address] 03/15/2019 Lipid Panel, Serum Low Hdl 45 mg/dL 50-0 mg/dL Final [facility]: [address] Triglyceride 88 mg/dL 0-150 mg/dL Final [facility]: [address] VLDL (Calculated) 18 mg/dL Final [facility]: [address] cholesterol/HDL Ratio 3.1 mg/dL Final [facility]: [address] non-HDL Cholesterol (Calculated) 95 mg/dL 0-160 mg/dL Final [facility]: [address] [place] [address] Cholesterol 140 mg/dL 0-200 mg/dL Final [facility]: [address] [place] [address] LDL (Calculated) 77 mg/dL 0-130 mg/dL Final [facility]: [address] 03/15/2019 TSH, Serum or Plasma Tsh 1.169 uIU/mL 0.350-4.940 uIU/mL Final [facility]: [address] [place] [address] 03/15/2019 HbA1C (Hemoglobin a1C), Blood High A1C W/eag 6.7 % 1.0-5.7 % Final [facility]: [address] [place] [address] Average Blood Glucose 146 mg/dL Final [facility]: [address] Allergies Code Code System Name Reaction Severity Status Onset 5640 RxNorm Ibuprofen Active 03/18/2017 003101 RxNorm Peanut Active 06/19/2018 1191 RxNorm Aspirin Itching Active 2670 RxNorm Codeine Active 513630 RxNorm Dilaudid Active 574611 RxNorm Motrin Hives Active Penicillins Hives Active [...] not available 03/31/2019 US, Breast, Unilateral [facility] [address] [place] [address] (Work Place) Vaccine List Vaccine Type influenza, high dose seasonal 08/07/20170.5 mL 07/07/20180.5 mL influenza, seasonal, injectable 08/07/20160.5 mL influenza, unspecified formulation 10/13/2014 pneumococcal conjugate PCV 13 03/16/20180.5 mL pneumococcal polysaccharide PPV23 09/18/20160.5 mL Tdap 10/13/2015 zoster 11/27/20160.65 mL Social History Smoking Status Former Smoker Past Encounters 03/31/2019 Body Mass Index 40+ - Severely Obese; Morbid Obesity; Thoracic Back Pain; Candidal Intertrigo; Diabetic Peripheral Neuropathy; Mastodynia of Left Breast; Venous Stasis Portia Gaming MD: [address] [place] [phone], Ph. 03/15/2019 Intertrigo; Type 2 Diabetes Mellitus; Hyperlipidemia; Benign Essential Hypertension; Body Mass Index 40+ - Severely Obese; Morbid Obesity; Congestive Heart Failure; Diabetic Neuropathy; Moderate Depression; Chronic Obstructive Lung Disease; Chronic Back Pain Vicenta Todd MD: [address] [place] [address], Ph. History of Present Illness Note:Here because she has issues with her legs [...] 1 week & its back .Clobetasol was used.</div> <div>Lt breast galaviz bad - Since 3 days ago , No fever m chills x 3 days , redness & swelling +, has the referal to see cardiology , will see him soon </div> Review of Systems:ROS as noted in the HPI Review of Systems None recorded. 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 Breast: normal appearance; no masses [...]
--- OUTSIDE RECORDS SUMMARY | 2019-08-28 15:46 | XMS REPORT | Encounter Summary ---
Author Organization Unknown Address [address] [place] [address] Phone [phone] Care Team Providers Care Production Aide Name Role Phone Dr. Vicenta Todd 3 [phone] Carole Palacio MD 82 [phone] Alex Diaz MD 111 [phone] Stephanie Amaya MD 113 [phone] Jo Ann Wheeler MD 114 [phone] Damian Goldstein MD 119 [phone] Pita Mills MD 129 [phone] Reason for Visit Insomnia; Mixed hyperlipidemia; Benign essential hypertension Instructions 1. Benign essential hypertension 2. Mixed hyperlipidemia 3. Insomnia 4. Body mass index 40+ - severely obese body mass index: care instructions learning about healthy weight 5. Type II diabetes mellitus uncontrolled type 2 diabetes: care instructions diabetic eye exam 6. Vertigo meclizine 25 mg tablet Discussion Note: None recorded. Plan of Care Reminders Provider Appointments Est Patient 06/28/2019 11:00AM Vicenta Todd MD Est Patient 07/09/2019 9:45AM Vicenta Todd MD Home Visit on or [...] HCl SR 200 mg tablet,12 hr sustained-release bupropion HCl XL 300 mg 24 hr [...] BMI Blood Pressure 5 ft 4 in 292 lbs 50.1 kg/m2 136/76 mm[Hg] Lab Results None recorded. Allergies Code Code System Name Reaction Severity Status Onset 5640 RxNorm Ibuprofen Active 03/18/2017 646502 RxNorm Peanut Active 06/19/2018 1191 RxNorm Aspirin Itching Active 2670 RxNorm Codeine Active 589139 RxNorm Dilaudid Active 012659 RxNorm Motrin Hives Active Penicillins Hives Active [...] Tobacco Smoking Status Former Smoker Past Encounters 05/10/2019 Benign Essential Hypertension; Mixed Hyperlipidemia; Insomnia; Body Mass Index 40+ - Severely Obese; Type II Diabetes Mellitus Uncontrolled; Vertigo Vicenta Todd MD: [address] [place] [phone], Ph. 05/04/2019 Type 2 Diabetes Mellitus; Diabetic Peripheral Neuropathy; Degeneration of Lumbar Intervertebral Disc; Body Mass Index 40+ - Severely Obese; Morbid Obesity; Benign Essential Hypertension Loly Brand, FLOOR INSTALLER: [address] [facility], [address], [place] [address], Ph. History of Present Illness Note:<div>69yo female presents for one-month follow-up visit. Last visit was 04/06/19.</div><div>Home health nurse from [facility] saw pt on 05/04/19 and refilled diabetes medications as pt unable to see new endo, Dr Goldstein until Aug 03, 2019. [address] followed [address] Dr Oshea in past, but he no longer takes her insurance.</div><div >Currently for DM is taking Tresiba 14units qpm, metformin 1000mg bid, glyburide 5mg two tablets bid, Farxiga 10mg qd. No longer on Invokana.
Since last visit, pt had injection last Fri05/07/19 at about L5 on left by pain management, Dr Dinh Awan. Has next appt 05/20/19 to consider injection to knee (bilateral knee pain). Injection has helped backpain significantly.</div><div> Has appt with professor of marketing, Dr Palacio in two week in mid-May.</div><div> Has appt with psychiatrist, Dr Moreno next week in [place].</div><div>Has not set up appt with pulm, Dr Wheeler.</div><div>Needs referral for diabetic eye exam, Dr Diaz. Last in 2016.</div><div>Has normal bilateral breast US at [facility] on 04/06/19 - repeat mammo in 1yr (03/2020).</div><div>
</div><div> Requests refill of meclizine for intermittent vertigo & dizziness. Has had current episode for past 3days. No falls, using cane for stability. Brief episode about 3-4 minutes about 2-3x/day. Has used meclizine in past with good results.</div><div>
</div><div>Left leg swelling resolved with extra doses of Lasic for three days. Rash under breast improved with medication. Has lost 7# since Kerry visit - smaller portion size, trying to lose weight.</div> Review of Systems:ROS as noted in the [...] morbidly obese. Level of Distress: NAD. Ambulation: ambulation with cane Psychiatric: Insight: good judgement. Mental Status: active and alert, normal mood, normal affect. Orientation: to time, to place, to person Head: Head: normocephalic, atraumatic Lungs: Respiratory effort: no dyspnea. Auscultation: breath sounds normal, good air movement, CTA except as noted, no wheezing, no rales/crackles, no rhonchi Cardiovascular: Heart Auscultation: RRR, normal S1, normal S2, no murmurs, no rubs, no gallops Musculoskeletal:: Motor Strength and Tone: normal motor strength, normal tone. Joints, Bones, and Muscles: normal movement of all extremities, no bony abnormalities, no contractures, no malalignment, no tenderness. Extremities: no cyanosis, no varicosities, edema Neurologic: Gait and Station: waddling; with cane. Cranial Nerves: grossly intact. Sensation: grossly intact Back: Thoracolumbar Appearance: normal curvature
--- OUTSIDE RECORDS SUMMARY | 2019-08-28 15:46 | XMS REPORT | Encounter Summary ---
Author Organization Unknown Address [address] [place] [address] Phone [phone] Care Team Providers Care Warehouse Forklift Operator Name Role Phone Dr. Vicenta Todd 3 [phone] Carole Palacio MD 82 [phone] Alex Diaz MD 111 [phone] uLcia Treadwell DO 113 [phone] Jo Ann Wheeler MD 114 [phone] Dax Oshea MD (Endocrinology) 119 [phone] Pita Mills MD 129 [phone] Reason for Visit Benign essential hypertension; Hyperlipidemia; Type 2 diabetes mellitus; rash Instructions 1. Intertrigo clotrimazole-betamethasone 1 %-0.05 % topical cream 2. Type 2 diabetes mellitus HbA1c (hemoglobin A1c), blood microalbumin:creatinine ratio, urine endocrinology referral - Please call patient and schedule her an appointment 3. Hyperlipidemia high cholesterol: care instructions lipid panel, serum 4. Benign essential hypertension CBC w/ auto diff CMP, serum or plasma TSH, serum or plasma 5. Body mass index 40+ - severely obese body mass index: care instructions learning about healthy weight 6. Morbid obesity 7. Congestive heart failure furosemide 40 mg tablet cardiology referral - Please call patient and schedule her an appointment. 8. Diabetic neuropathy 9. Moderate depression psychiatry referral - Please call patient and schedule her an appointment. 10. Chronic obstructive lung disease sales audit clerk referral - Please call patient and schedule her an appointment. 11. Chronic back pain pain management referral - Please call patient and schedule her an appointment. Discussion Note: None recorded. Plan of Care Reminders Provider Appointments Est Patient 04/02/2019 9:30AM Vicenta Todd MD Est Patient 06/21/2019 9:30AM Vicenta Todd MD Lab HbA1C (Hemoglobin a1C), Blood 03/15/2019 [facility] Microalbumin:creatinine Ratio, Urine 03/15/2019 [facility] CBC W/ Auto Diff 03/15/2019 [facility] CMP, Serum or Plasma 03/15/2019 [facility] Lipid Panel, Serum 03/15/2019 [facility] TSH, Serum or Plasma 03/15/2019 [facility] Referral Cardiology Referral 03/15/2019 Carole Palacio Psychiatry Referral 03/15/2019 Miesha Rosenbaum MD Paint Mixer Referral 03/15/2019 Jo Ann Wheeler MD Pain Management Referral 03/15/2019 Dinh Awan MD Endocrinology Referral 03/15/2019 Dax Oshea MD (Endocrinology) Procedures None recorded. Surgeries None recorded. Imaging [...] BMI Blood Pressure 5 ft 4 in 294.67 lbs 50.6 kg/m2 124/74 mm[Hg] Lab Results None recorded. Allergies Code Code System Name Reaction Severity Status Onset 5640 RxNorm Ibuprofen Active 03/18/2017 013678 RxNorm Peanut Active 06/19/2018 1191 RxNorm Aspirin Itching Active 2670 RxNorm Codeine Active 662709 RxNorm Dilaudid Active 624800 RxNorm Motrin Hives Active Penicillins Hives Active [...] History Smoking Status Former Smoker Past Encounters 03/15/2019 Intertrigo; Type 2 Diabetes Mellitus; Hyperlipidemia; Benign Essential Hypertension; Body Mass Index 40+ - Severely Obese; Morbid Obesity; Congestive Heart Failure; Diabetic Neuropathy; Moderate Depression; Chronic Obstructive Lung Disease; Chronic Back Pain Vicenta Todd MD: [address] [place] [address], Ph. History of Present Illness Note:68yo female presents for evaluation of rash under breasts & between legs for past week. Getting worse instead of better with clobetasol cream. Pt had no improvement in past with nystatin powder, so no longer uses it. Would like refill of clotrimazole-betamethasone cream which she has used in past, but ran out of.<div>Last visit three-months ago on 01/01/19. Needs all referrals updated with current insurance. Last AWV on 11/25/18.
<div>
</div><div>Has upcoming appt this Friday, March 19 with endo, Dr Oshea. Last visit with him was October - is going to [facility] for pre-visit labs this afternoon. Will also plan to discuss weekly Fosamax with Dr Oshea this Friday for osteoporosis.</div><div>
</div><div>Pt will call & schedule f/u with her pain management, Dr Dinh Awan.</div>
<div>Previously:</div><div>Pt had both mammogram & bone density testing on 11/04/18 at [facility] showing normal mammogram & osteoporosis. </div><div>Discussed osteoporosis - will start weekly Fosamax & amp; encouraged daily calcium, vit D and wt-bearing exercise.</div><div>Younger brother had brain tumors and on December 13, 2018. Since then, pt has had trouble sleeping.</div><div>
</div><div>PMHx:</div><div>Hospitalized for five days from 06/17 - 06/22/[address] [facility] for COPD exacerbation. Since then, has followed up with heike Cristina, for sleep study. Completed sleep study at [facility] on Jul 17. Pt not on CPAP yet.</div><div><div>
</div><div>Hx of intermittent dizziness/vertigo. Would like refill of meclizine which she has taken in past from Dr Guerra. </div><div> Completed 30-day Holter monitor with cigar tobacco rehandler, Dr. Colbert in Jun 2018 - normal per pt.</div><div>Has been wearing compression stockings. No swelling of LEs. Healed both left LE ulcers - had been tx'd at [facility] <span style="font- size: 14px;">[facility] and was given compression stockings, compression socks and referral to see vein specialist with </span>Katie<span style="font-size: 14px;">, vein specialist on [place]. Was released from the wound care center.</span></div><div>
</div>< div>Followed every three months by sudhir Watkins for DM.</div><div>Has severe diabetic neuropathy, followed by pain management, Dr. Knight, and neurology, Dr. Mills. On gabapentin.</div><div>
</div><div>Pt continues to see her regular psychiatrist in [place] every 90 days. No recent change in psych medications. < /div><div>
</div><div>Is followed by endocrinology Dr. Oshea for diabetes which she has had for past [address] Oshea every 90 days for bloodwork & medication. For diabetes, currently on metformin, glyburide, invokana, and Tresiba insulin 14units at night.
</div><div>
</div><div>Is followed by Dr. Palacio, cardiology for arrhythmia.
</div><div>
< /div><div>Is followed by Dr. Wheeler, pulm, for hx of COPD. Quit smoking in Jun 2017. Still not smoking! Pt is still using asthma inhalers/neb as prescribed by Dr. Wheeler.</div></div></div> Review of Systems:ROS as noted in the [...] wheeze on exam today. Needs follow-up with pulDr. Grant davies/Liam Cardiovascular: Heart Auscultation: RRR, normal S1, normal S2, no murmurs. Neck vessels: no carotid bruits Abdomen: Bowel Sounds: normal. Inspection and Palpation: soft Musculoskeletal:: Joints, Bones, and Muscles: normal movement of all extremities. Extremities: no edema; no edema on exam today. Right Knee: no tenderness Neurologic: Gait and Station: normal gait Skin: Inspection and palpation: no lesions, rash; hyperpigmentation of both LEs. Has rash under both breasts and in skin fold of lower abdomen. No ulceration.See photo below
--- OUTSIDE RECORDS SUMMARY | 2019-08-28 15:46 | XMS REPORT | Encounter Summary ---
Author Organization Unknown Address [address] [place] [address] Phone [phone] Care Team Providers Care Equipment Installation Professional Name Role Phone Dr. Vicenta Todd 3 [phone] Carole Palacio MD 82 [phone] Alex Diaz MD 111 [phone] Lucia Treadwell DO 113 [phone] Jo Ann Wheeler MD 114 [phone] Dax Oshea MD (Endocrinology) 119 [phone] Pita Mills MD 129 [phone] Reason for Visit AWV Annual Wellness Visit Female (P); UTI Instructions 1. Adult health examination 2. Advance directive discussed with patient advance care planning: care instructions 3. Depression screening 4. Alcohol consumption screening learning about alcohol misuse 5. Depression screening positive learning about depression learning about mood disorders 6. Acute urinary tract infection urinalysis, dipstick Cipro 500 mg tablet culture, urine 7. At risk for falls preventing falls: care instructions Discussion Note: None recorded. Plan of Care Reminders Provider Appointments Est Patient 12/29/2018 9:30AM Vicenta Todd MD Lab Urinalysis, Dipstick 11/25/2018 [facility] Maxbass Culture, Urine 11/25/2018 [facility] Referral None recorded. Procedures None recorded. [...] Status Onset 5640 RxNorm Ibuprofen Active 03/18/2017 838372 RxNorm Peanut Active 06/19/2018 1191 RxNorm Aspirin Itching Active 2670 RxNorm Codeine Active 637897 RxNorm Dilaudid Active 325387 RxNorm Motrin Hives Active Penicillins Hives Active [...] Screening; Depression Screening Positive; Acute Urinary Tract Infection; At Risk for Falls Marcelo Bender MD: [address] [place] [address], Ph. History of Present Illness Mini Cog [...]
[2019-08-28] MEDS ORDERED: BENZONATATE 100 MG CAP PO PRN (16:00)
[2019-08-28] MEDS ORDERED: ALBUTEROL SULF 0.083% NEB SOLN 3 ML NEB NEB NR (16:00)
[2019-08-28] MEDS ORDERED: ACETAMINOPHEN/CODEINE ELIX 120-12 MG/5 ML UDC PO ONE (16:00)
[2019-08-28] MEDS ORDERED: METHYLPREDNISOLONE SOD SUCC 125 MG/2ML VIAL IV NR (16:00)
[2019-08-28] MEDS ORDERED: IPRATROPIUM BROMIDE 0.02% 2.5 ML NEB NEB NR (16:00)
--- NOTE | 2019-08-28 17:14 | Diagnostic Imaging Report ---
EXAMINATION: CHEST 2 VIEWS INDICATION: Cough. Shortness of breath. Chest pain. COMPARISON: None FINDINGS: TUBES and LINES: None. LUNGS: 3 mm calcified granuloma in the right upper lobe. There are bibasilar atelectasis. There is no evidence of pneumonia or pulmonary edema. PLEURA: No pleural effusion or pneumothorax. HEART AND MEDIASTINUM: The cardiomediastinal silhouette is unremarkable. There are atherosclerotic calcifications within the aorta. BONES AND SOFT TISSUES: There are degenerative changes in the thoracic spine. Soft tissues are unremarkable. UPPER ABDOMEN: No free air under the diaphragm. IMPRESSION: Bibasilar subsegmental atelectasis. Signed by: Dr. Lula Copeland M.D. on 08/28/2019 5:11 PM
[2019-08-28 17:36] LABS: BASOPHILS % 0.2 % (0.0-1.0); EOSINOPHILS # (AUTO) 0.1 (0.0-0.4); EOSINOPHILS % 1.2 % (0.0-6.0); HEMATOCRIT 44.4 % (34.2-44.1); HEMOGLOBIN 14.4 g/dL (12.0-16.0); LYMPHOCYTES # (AUTO) 1.3 (1.0-3.2); LYMPHOCYTES % 22.5 % (18.0-39.1); MEAN CORPUSCULAR HEMOGLOBIN 29.8 pg (28-32); MEAN CORPUSCULAR HGB CONC 32.4 g/dL (31-35); MEAN CORPUSCULAR VOLUME 91.9 fL (81-99); MONOCYTES # (AUTO) 0.6 (0.2-0.8); MONOCYTES % 10.3 % (4.4-11.3); NEUTROPHILS # (AUTO) 3.8 (2.1-6.9); NEUTROPHILS % 65.3 % (38.7-80.0); PLATELET COUNT 200 x10e3/uL (140-360); RED BLOOD COUNT 4.83 x10e6/uL (3.6-5.1); RED CELL DISTRIBUTION WIDTH 12.9 % (11.7-14.4)
[2019-08-28 17:56] LABS: ALBUMIN 3.6 g/dL (3.5-5.0); ANION GAP 15.7 mmol/L (8-16); CALCIUM 9.4 mg/dL (8.4-10.2); CREATININE, SERUM 1.19 mg/dL (0.57-1.11); POTASSIUM 3.7 mmol/L (3.5-5.1)
[2019-08-28 19:01] VITALS: BP 128/86
== END 2019-08-28 19:04 | disposition home or self-care (01) ==
LOC: ER 15:42
DX: R05 Cough (principal); J20.9 Acute bronchitis, unspecified; E11.9 Type 2 diabetes mellitus without complications; I10 Essential (primary) hypertension; J44.9 Chronic obstructive pulmonary disease, unspecified; E78.5 Hyperlipidemia, unspecified; F41.9 Anxiety disorder, unspecified; I48.91 Unspecified atrial fibrillation; E66.9 Obesity, unspecified; Z87.891 Personal history of nicotine dependence
CPT/HCPCS: 36415; 71046; 80053; 83880; 84484; 85025; 93005; 94640; 99283; J2930

== ENCOUNTER 2019-09-01 19:03 | Emergency (ER) | payer MEDICARE ==
[~2019-09-01] VITALS: Ht 167.6 cm; Wt 132.9 kg
[2019-09-01] MEDS ORDERED: ALBUTEROL/IPRATROPIUM 3 ML NEB NEB ONE ×2 (19:15→21:45)
[2019-09-01] MEDS ORDERED: DEXAMETHASONE SOD PHOS 10 MG/1 ML VIAL IM ONE (19:15)
[2019-09-01] MEDS ORDERED: GUAIFENESIN/DEXTROMETHORPHAN LIQD 5 ML UDC PO ONE (19:15)
--- NOTE | 2019-09-01 19:28 | NUR ---
dougie called for [facility] tx for this pt.
--- NOTE | 2019-09-01 19:43 | NUR ---
r.t. in room with pt at this time.
--- NOTE | 2019-09-01 21:07 | Diagnostic Imaging Report ---
EXAM: CHEST 2 VIEWS DATE: 09/01/2019 7:08 PM INDICATION: ^SOB ^[id number] ^1997 COMPARISON: Chest x-ray, 08/28/2019 FINDINGS: Lines and tubes: None Heart size normal. Right upper lobe nodule and linear scarring or atelectasis at the left lung base is unchanged. No new consolidation, pleural effusion or pneumothorax. Upper abdomen unremarkable. No acute bony abnormality. IMPRESSION: No evidence for acute disease. Stable right upper lobe nodule. Stable scarring or atelectasis at the left lung base. Signed by: Dr. Tomas Evasn M.D. on 09/01/2019 9:03 PM
== END 2019-09-01 23:00 | disposition home or self-care (01) ==
LOC: ER 19:03
DX: R50.9 Fever, unspecified (principal); R05 Cough; J20.9 Acute bronchitis, unspecified; F17.210 Nicotine dependence, cigarettes, uncomplicated
CPT/HCPCS: 71046; 94640 ×2; 99284; J1100